=== PATIENT | female | born 1960 | race Caucasian/White ===

== ENCOUNTER 2017-08-14 09:57 | Emergency (ER) | payer OTHER ==
[~2017-08-14] VITALS: Ht 170.2 cm; Wt 97.5 kg
[~2017-08-14 09:57] MED LIST: ABAT250V; AMLO5 PO; AMOCLA875 PO; ASPI81CH PO; BUPR75; CEFD300 PO; CEPH500 PO; CLON.1; CLON.2; CYCL10 PO; FURO20 PO; GREEN COFFEE BEAN; HYDACE5 PO; HYDACE5325 PO; Hydrocodone-Ap1 EA23 PO; IBUP400 PO; IBUP800 PO; LIPOZENE; LISI5; MELO7.5 PO; METR500 PO; MORP15ER PO; MULVITMINE PO; Mobic7.5 MG PO; Norco 5-325 Ta1 EACH PO; OLME20; OMEP40CA12 PO; OXYACE5T PO; POTA10T PO; PROM25 PO; Prinivil10 MG PO; SERT100; SERT100 PO; SULTRIDS PO; SUPRENZA ODT30 MG PO; TRAM50; TRAM50 PO; TRIHYD253A PO
[2017-08-14 11:14] LABS: BASOPHILS ABSOLUTE AUTO 0.01 K/mm3 (0.00-0.23); BASOPHILS PERCENT AUTO 0 % (0-2); EOSINOPHILS ABSOLUTE AUTO 0.13 K/mm3 (0.00-0.68); EOSINOPHILS PERCENT AUTO 2 % (0-6); Hematocrit 33.5 % (33.0-51.0); Hemoglobin 10.9 g/dL (11.5-16.0); IMMATURE GRAN ABSOLUTE AUTO 0.02 K/mm3 (0.00-0.10); IMMATURE GRAN PERCENT AUTO 0 % (0-1); LYMPHOCYTES ABSOLUTE AUTO 2.41 K/mm3 (0.84-5.20); LYMPHOCYTES PERCENT AUTO 35 % (21-46); MONOCYTES PERCENT AUTO 7 % (4-13); Mean Corpuscular HGB 29.5 pg (26.0-34.0); Mean Corpuscular HGB Conc 32.5 g/dL (31.5-36.5); Mean Corpuscular Volume 91 fL (80-100); Mean Platelet Volume 8.9 fL (9.1-12.4); NEUTROPHILS ABSOLUTE AUTO 3.82 K/mm3 (1.96-9.15); NEUTROPHILS PERCENT AUTO 55 % (41-73); Platelet Count 236 K/mm3 (150-400); RDW Coefficient Variation 14.4 % (11.7-14.2); RDW Standard Deviation 47.3 fL (35.1-46.3); White Blood Cell Count 6.89 K/mm3 (4.00-11.30)
[2017-08-14 11:35] LABS: Albumin, Blood 3.4 g/dL (3.4-5.0); Albumin/Globulin Ratio 1.1 (0.8-1.8); Bilirubin, Total 0.2 mg/dL (0.1-1.0); Bun/Creatinine Ratio 16.9 (12.0-20.0); Calcium, Blood 8.5 mg/dL (8.5-10.1); Creatinine, Blood 1.48 mg/dL (0.40-1.00); Total Protein, Blood 6.4 g/dL (6.4-8.2)
[2017-08-14] MEDS ORDERED: MINO100 PO (14:07)
[2017-08-14] MEDS ORDERED: HYDR1TAB94 PO (14:07)
[2018-07-10] MEDS ORDERED: IRON150C PO (18:16)
[2018-07-10] MEDS ORDERED: CYAN500 PO (18:16)
== END 2017-08-14 14:46 | disposition home or self-care (01) ==
LOC: ER 09:57
PROVIDERS: Emergency Medicine
DX: L03.116 Cellulitis of left lower limb (principal); S90.862D Insect bite (nonvenomous), left foot, subsequent encounter; W57.XXXD Bitten or stung by nonvenomous insect and other nonvenomous arthropods, subsequent encounter; Z79.899 Other long term (current) drug therapy; I10 Essential (primary) hypertension; F32.9 Major depressive disorder, single episode, unspecified; Z96.642 Presence of left artificial hip joint; Z98.51 Tubal ligation status; Z90.49 Acquired absence of other specified parts of digestive tract
CPT/HCPCS: 36415; 80053; 85025; 90471; 90714; 99283

== ENCOUNTER → 2019-06-04 | Outpatient (CLI) | payer OTHER ==
[~2019-06-04] MED LIST changes: +CYAN500 PO; +HYDR1TAB94 PO; +IRON150C PO; +MINO100 PO
[2019-06-04 16:50] LABS: Source, Urine Clean Catch
[2019-06-04 18:13] LABS: Bilirubin, Urine Neg (Neg); Blood, Urine 4+ (Neg); Glucose Qualitative, Urine Neg (Neg); Ketones, Urine Neg (Neg); Leukocyte Esterase, Urine 3+ (Neg); Nitrite, Urine Neg (Neg); Protein, Urine 2+ (Neg); Urobilinogen, Urine NORM (Normal)
[2019-06-04 18:38] LABS: Appearance, Urine Hazy (Clear); Color, Urine Yellow (P-Yellow)
[2019-06-04 18:39] LABS: Squamous Epithelial Cells Few /hpf (Few)
[2019-06-04 18:40] LABS: Bacteria Mod /hpf
== END | disposition home or self-care (01) ==
LOC: OLS 16:49 → LAB SHORT 16:49
PROVIDERS: Physician Assistant
DX: R30.0 Dysuria (principal)
CPT/HCPCS: 81001; 87077; 87086; 87186

== ENCOUNTER → 2019-08-21 | Outpatient (CLI) | payer OTHER ==
[2019-08-21 11:25] LABS: Source, Urine Clean Catch
[2019-08-21 12:26] LABS: Appearance, Urine Hazy (Clear); Bilirubin, Urine Neg (Neg); Blood, Urine 4+ (Neg); Color, Urine Yellow (P-Yellow); Glucose Qualitative, Urine Neg (Neg); Ketones, Urine 1+ (Neg); Leukocyte Esterase, Urine 2+ (Neg); Nitrite, Urine Neg (Neg); Protein, Urine 3+ (Neg); Specific Gravity, Urine 1.025 (1.003-1.022); Urobilinogen, Urine NORM (Normal)
[2019-08-21 12:38] LABS: Bacteria Mod /hpf; Squamous Epithelial Cells Mod /hpf (Few)
== END | disposition home or self-care (01) ==
LOC: LAB SHORT 11:22 → OLS 11:22 → LAB FUT 08-20 16:15
PROVIDERS: Physician Assistant
DX: N39.0 Urinary tract infection, site not specified (principal)
CPT/HCPCS: 81001; 87077; 87086; 87186

== ENCOUNTER → 2020-07-20 | Outpatient (CLI) | payer OTHER ==
[~2020-07-20] MED LIST changes: +ACET500 PO; -CLON.2; +CLON.2 PO; +DELTASONE20 MG PO; +DIPYRIDAMOLE PO; +FLUT1DIS2 INH; -LISI5; +LISI5 PO; +METO25ER PO; +OMEP20ER PO; +POTCIT10 PO; +ROSU10TA PO; +ROXICODONE5 MG PO; +Ventolin/Prove6.7 GM INH
== END ==
LOC: LAB 14:45
DX: R35.0 Frequency of micturition (principal)
CPT/HCPCS: 87086

== ENCOUNTER 2020-09-19 12:23 | Day surgery (SDC) | payer OTHER ==
[~2020-09-19] VITALS: Ht 167.6 cm; Wt 104.0 kg
[~2020-09-19 12:23] MED LIST changes: -ACET500 PO; -DELTASONE20 MG PO; -ROXICODONE5 MG PO
== END 2020-09-19 14:28 | disposition home or self-care (01) ==
LOC: ORSCSDS 12:23
PROVIDERS: Internal Medicine Gastroenterology
PROC: 0DBL8ZX Excision of Transverse Colon, Via Natural or Artificial Opening Endoscopic, Diagnostic (ICD-10-PCS; principal; 2020-09-19 13:45)
DX: K62.5 Hemorrhage of anus and rectum (principal); D12.3 Benign neoplasm of transverse colon; K57.30 Diverticulosis of large intestine without perforation or abscess without bleeding; K64.8 Other hemorrhoids; Z86.010 Personal history of colon polyps; I10 Essential (primary) hypertension; F32.9 Major depressive disorder, single episode, unspecified; B19.10 Unspecified viral hepatitis B without hepatic coma; Z79.899 Other long term (current) drug therapy
CPT/HCPCS: 88305; J2250; J2405; J2704; J7120

== ENCOUNTER 2020-09-30 22:43 | Emergency (ER) | payer OTHER ==
[~2020-09-30] VITALS: Ht 167.6 cm; Wt 99.8 kg
[2020-10-01] MEDS ORDERED: DELTASONE20 MG PO (00:04)
== END 2020-10-01 00:33 | disposition home or self-care (01) ==
LOC: ER 22:43
DX: M77.8 Other enthesopathies, not elsewhere classified (principal); I10 Essential (primary) hypertension; Z79.899 Other long term (current) drug therapy
CPT/HCPCS: 29125; 99283-25

== ENCOUNTER 2020-10-23 06:12 | Day surgery (SDC) | payer OTHER ==
[~2020-10-23] VITALS: Ht 167.6 cm; Wt 105.6 kg
[~2020-10-23 06:12] MED LIST changes: +DELTASONE20 MG PO
--- NOTE | 2020-10-23 07:08 | NUR ---
Ambulatory in Day Surgery Surgical site prepped with 2% Chlorhexidine cloth wipe. Darby Paws warming gown applied. History, Chart, Medications and Allergies reviewed before start of procedure.Lungs clear T/O to Auscultation. Patient confirms NPO status and agrees with scheduled surgery. Pre-Op teaching done. Pt verbalizes understanding. Patient States Post-Procedure ride home has been arranged. Patient reports completing Chlorhexadine shower X2 prior to admission to hospital.
--- NOTE | 2020-10-23 08:19 | NUR ---
10/23/20 0819 Hung Barnes PTS GREAT TOES BILATERALLY PALE PURPLEISH IN COLOR WITH ROUGH SKIN PRIOR TO HANA BOOTS BEING APPLIED. PPP BILATERALLY
--- NOTE | 2020-10-23 17:54 | NUR ---
SHIFT SUMMARY PT A&OX4, VSS, S/P R OMAR, AQUACEL CDI, AMBULATES W/FWW/GB/SBA, UP TO CHAIR, TADEO PO, VOIDING WELL, DENIES PAIN AT THIS TIME, PHYSICAL THERAPY EVALUATION COMPLETE, PLAN FOR P.T. AT 0900 AND THEN DC IF ALL CONTINUES TO GO WELL. WILL REPORT TO [facility] NOC RN.
--- NOTE | 2020-10-24 04:44 | NUR ---
MARBLE FINISHER SUMMARY A/O X4, SBA WITH FWW TO BATHROOM. PT IS TOLERATING AMBLULATION WELL. AQUACEL TO R. HIP C/D/I. MEDICATED FOR PAIN X3. REPORTS INTERMITTENT NUMBNESS TO HANDS BILATERALLY THAT HAS SINCE RESOLVED. VSS, NO ACUTE CHANGES AT THIS TIME. BED IN LOWEST POSITION WITH CALL LIGHT IN REACH. WILL CONTINUE TO MONITOR AND REPORT TO ONCOMING RN.
[2020-10-24 05:28] LABS: BASOPHILS ABSOLUTE AUTO 0.02 K/mm3 (0.00-0.23); BASOPHILS PERCENT AUTO 0 % (0-2); EOSINOPHILS ABSOLUTE AUTO 0.04 K/mm3 (0.00-0.68); EOSINOPHILS PERCENT AUTO 1 % (0-6); Hematocrit 30.2 % (33.0-51.0); IMMATURE GRAN ABSOLUTE AUTO 0.02 K/mm3 (0.00-0.10); IMMATURE GRAN PERCENT AUTO 0 % (0-1); LYMPHOCYTES ABSOLUTE AUTO 1.27 K/mm3 (0.84-5.20); LYMPHOCYTES PERCENT AUTO 17 % (21-46); MONOCYTES ABSOLUTE AUTO 0.54 K/mm3 (0.16-1.47); MONOCYTES PERCENT AUTO 7 % (4-13); Mean Corpuscular HGB 29.1 pg (26.0-34.0); Mean Corpuscular HGB Conc 33.1 g/dL (31.5-36.5); Mean Corpuscular Volume 88 fL (80-100); Mean Platelet Volume 9.2 fL (9.1-12.4); NEUTROPHILS ABSOLUTE AUTO 5.54 K/mm3 (1.96-9.15); NEUTROPHILS PERCENT AUTO 75 % (41-73); Platelet Count 176 K/mm3 (150-400); RDW Standard Deviation 44.8 fL (35.1-46.3); Red Blood Cell Count 3.44 M/mm3 (3.80-5.20); White Blood Cell Count 7.43 K/mm3 (4.00-11.30)
[2020-10-24 05:49] LABS: Bun/Creatinine Ratio 19.1 (12.0-20.0); Calcium, Blood 8.4 mg/dL (8.5-10.1); Creatinine, Blood 1.36 mg/dL (0.40-1.00); Magnesium, Blood 2.3 mg/dL (1.6-2.4); Potassium, Blood 4.3 mmol/L (3.5-5.5)
[2020-10-24] MEDS ORDERED: ACET500 PO (08:59)
[2020-10-24] MEDS ORDERED: ASPI81CH PO (09:00)
[2020-10-24] MEDS ORDERED: ROXICODONE5 MG PO (09:01)
--- NOTE | 2020-10-24 10:36 | NUR ---
DISCHARGE SUMMARY PT A&OX4, VSS, VOIDING, TOLERATING, PAIN MANAGED, AMB W/FWW/GB, UP TO CHAIR, FRIEND AT BEDSIDE FOR PHYISCAL THERAPY. LEFT FLOOR VIA WC WITH ALL PERSONAL POSSESSIONS, INCLUDING DC PACKET AND 1 NARC SCRIPT, TO GO HOME WITH FRIEND. DC INSTRUCTIONS PROVIDED, PT REP UNDERSTANDING THOSE INSTRUCTIONS. IV DC'D.
== END 2020-10-24 10:02 | disposition home or self-care (01) ==
LOC: ORSCMMR 06:12 → ORD 07:30 → ORSCMMR 07:30 → SURS 11:15 → ORSCMMR 10-24 10:02
PROVIDERS: Orthopaedic Surgery
PROC: 0SR90JA Replacement of Right Hip Joint with Synthetic Substitute, Uncemented, Open Approach (ICD-10-PCS; principal; 2020-10-23 07:30)
DX: M16.11 Unilateral primary osteoarthritis, right hip (principal); I10 Essential (primary) hypertension; E78.00 Pure hypercholesterolemia, unspecified; E66.01 Morbid (severe) obesity due to excess calories; Z68.37 Body mass index [BMI] 37.0-37.9, adult; Z79.899 Other long term (current) drug therapy
CPT/HCPCS: 36415; 72170; 80048; 83735; 85025; 88300; 94640; 94760; 97110; 97110-CQ; 97116; 97116-CQ; 97161; 97530; 97530-CQ; A9270; C1776; J0171; J0690; J0735; J1100; J1885; J2250; J2405; J2704; J2795; J3010; J7120

== ENCOUNTER → 2021-07-11 | Outpatient (CLI) | payer OTHER ==
[~2021-07-11] MED LIST changes: +ACET500 PO; +ROXICODONE5 MG PO
[2021-07-13 15:07] LABS: HPV 16 Negative (Negative); HPV 18 Negative (Negative); HPV OTHER HR TYPES Negative (Negative)
== END | disposition home or self-care (01) ==
LOC: LAB SHORT 18:01 → LAB 18:01
PROVIDERS: Registered Nurse
DX: Z12.4 Encounter for screening for malignant neoplasm of cervix (principal)
CPT/HCPCS: 87624; G0145

== ENCOUNTER → 2021-09-02 | Outpatient (CLI) | payer OTHER ==
[2021-09-03 13:02] LABS: Microalbumin, Urine Quant. 26.2 mg/L (0.000-20.000); Protein, Urine Quantitative 17.8 mg/dL (0.0-11.9)
== END | disposition home or self-care (01) ==
LOC: LAB FUT 03-15 10:50 → LAB SHORT 10:45
PROVIDERS: Internal Medicine Nephrology
DX: N18.30 Chronic kidney disease, stage 3 unspecified (principal); D63.1 Anemia in chronic kidney disease; R94.5 Abnormal results of liver function studies; R76.9 Abnormal immunological finding in serum, unspecified; R94.6 Abnormal results of thyroid function studies
CPT/HCPCS: 81050; 82043; 82570; 84156

== ENCOUNTER → 2021-12-19 | Outpatient (CLI) | payer OTHER | END | disposition home or self-care (01) | LOC: LAB SHORT 18:53 → LAB 18:53 | DX: S81.801A Unspecified open wound, right lower leg, initial encounter (principal) | CPT/HCPCS: 87070; 87075; 87205 ==

== ENCOUNTER → 2022-01-03 | Outpatient (CLI) | payer OTHER | END | disposition home or self-care (01) | LOC: LAB 09:21 → LAB SHORT 09:21 | DX: S81.802A Unspecified open wound, left lower leg, initial encounter (principal) | CPT/HCPCS: 87070; 87075; 87205 ==

== ENCOUNTER 2022-01-18 01:13 | Day surgery (SDC) | payer OTHER | END 2022-01-18 22:53 | disposition home or self-care (01) | LOC: WOUND 01:13 | DX: S81.802A Unspecified open wound, left lower leg, initial encounter (principal); X58.XXXA Exposure to other specified factors, initial encounter | CPT/HCPCS: A9270; G0463 ==

== ENCOUNTER 2022-01-23 01:21 | Day surgery (SDC) | payer OTHER | END 2022-01-23 22:40 | disposition home or self-care (01) | LOC: WOUND 01:21 | DX: I87.311 Chronic venous hypertension (idiopathic) with ulcer of right lower extremity (principal); S81.811D Laceration without foreign body, right lower leg, subsequent encounter; X58.XXXD Exposure to other specified factors, subsequent encounter; I87.2 Venous insufficiency (chronic) (peripheral); I73.9 Peripheral vascular disease, unspecified | CPT/HCPCS: G0463 ==

== ENCOUNTER 2022-02-08 01:06 | Day surgery (SDC) | payer OTHER | END 2022-02-08 23:03 | disposition home or self-care (01) | LOC: WOUND 01:06 | DX: S81.811D Laceration without foreign body, right lower leg, subsequent encounter (principal); X58.XXXD Exposure to other specified factors, subsequent encounter; I87.311 Chronic venous hypertension (idiopathic) with ulcer of right lower extremity; I87.2 Venous insufficiency (chronic) (peripheral); I73.9 Peripheral vascular disease, unspecified | CPT/HCPCS: G0463 ==

== ENCOUNTER 2022-02-15 03:03 | Day surgery (SDC) | payer OTHER | END 2022-02-15 23:05 | disposition home or self-care (01) | LOC: WOUND 03:03 | DX: S81.811D Laceration without foreign body, right lower leg, subsequent encounter (principal); I87.2 Venous insufficiency (chronic) (peripheral); I87.311 Chronic venous hypertension (idiopathic) with ulcer of right lower extremity | CPT/HCPCS: G0463 ==

== ENCOUNTER 2022-03-08 02:29 | Day surgery (SDC) | payer OTHER | END 2022-03-08 22:48 | disposition home or self-care (01) | LOC: WOUND 02:29 | DX: L03.115 Cellulitis of right lower limb (principal); S81.811D Laceration without foreign body, right lower leg, subsequent encounter; X58.XXXD Exposure to other specified factors, subsequent encounter; I87.2 Venous insufficiency (chronic) (peripheral); I73.9 Peripheral vascular disease, unspecified; I87.311 Chronic venous hypertension (idiopathic) with ulcer of right lower extremity; I12.9 Hypertensive chronic kidney disease with stage 1 through stage 4 chronic kidney disease, or unspecified chronic kidney disease; N18.9 Chronic kidney disease, unspecified; E78.5 Hyperlipidemia, unspecified | CPT/HCPCS: A9270; G0463 ==

== ENCOUNTER 2022-06-04 16:15 | Emergency (ER) | payer OTHER ==
[~2022-06-04] VITALS: Ht 167.6 cm; Wt 109.9 kg
[2022-06-04] MEDS ORDERED: DOCU100 PO (20:25)
[2022-06-04] MEDS ORDERED: TRAM50 PO (20:26)
[2022-06-04 20:37] LABS: BASOPHILS ABSOLUTE AUTO 0.02 K/mm3 (0.00-0.23); BASOPHILS PERCENT AUTO 0 % (0-2); EOSINOPHILS ABSOLUTE AUTO 0.21 K/mm3 (0.00-0.68); EOSINOPHILS PERCENT AUTO 3 % (0-6); Hematocrit 34.3 % (33.0-51.0); Hemoglobin 11.5 g/dL (11.5-16.0); IMMATURE GRAN ABSOLUTE AUTO 0.02 K/mm3 (0.00-0.10); IMMATURE GRAN PERCENT AUTO 0 % (0-1); LYMPHOCYTES ABSOLUTE AUTO 2.04 K/mm3 (0.84-5.20); LYMPHOCYTES PERCENT AUTO 29 % (21-46); MONOCYTES ABSOLUTE AUTO 0.51 K/mm3 (0.16-1.47); MONOCYTES PERCENT AUTO 7 % (4-13); Mean Corpuscular HGB 28.9 pg (26.0-34.0); Mean Corpuscular HGB Conc 33.5 g/dL (31.5-36.5); Mean Corpuscular Volume 86 fL (80-100); NEUTROPHILS ABSOLUTE AUTO 4.34 K/mm3 (1.96-9.15); NEUTROPHILS PERCENT AUTO 61 % (41-73); Platelet Count 244 K/mm3 (150-400); RDW Coefficient Variation 13.9 % (11.7-14.2); RDW Standard Deviation 43.9 fL (35.1-46.3); Red Blood Cell Count 3.98 M/mm3 (3.80-5.20); White Blood Cell Count 7.14 K/mm3 (4.00-11.30)
[2022-06-04 21:08] LABS: C-REACTIVE PROTEIN, EXT RANGE 0.486 mg/dL (0.000-0.300)
[2022-06-04 21:10] LABS: Albumin, Blood 3.5 g/dL (3.4-5.0); Albumin/Globulin Ratio 1.2 (0.8-1.8); Bilirubin, Total 0.3 mg/dL (0.1-1.0); Bun/Creatinine Ratio 17.9 (12.0-20.0); Calcium, Blood 9.1 mg/dL (8.5-10.1); Creatinine, Blood 1.4 mg/dL (0.40-1.00); Globulin, Blood 2.9 g/dL (2.2-4.0); Potassium, Blood 4.2 mmol/L (3.5-5.5); Total Protein, Blood 6.4 g/dL (6.4-8.2)
[2022-06-04] MEDS ORDERED: Cipro500 MG PO (21:45)
== END 2022-06-04 21:51 | disposition home or self-care (01) ==
LOC: ER 16:15
PROVIDERS: Emergency Medicine
DX: L08.9 Local infection of the skin and subcutaneous tissue, unspecified (principal); I10 Essential (primary) hypertension; Z79.899 Other long term (current) drug therapy; Z79.82 Long term (current) use of aspirin
CPT/HCPCS: 36415; 73630; 80053; 85025; 85651; 86140

== ENCOUNTER → 2022-11-11 | Outpatient (CLI) | payer OTHER ==
[~2022-11-11] MED LIST changes: +Cipro500 MG PO; +DOCU100 PO
[2022-11-11 18:50] LABS: BASOPHILS ABSOLUTE AUTO 0.02 K/mm3 (0.00-0.23); BASOPHILS PERCENT AUTO 0 % (0-2); EOSINOPHILS PERCENT AUTO 1 % (0-6); Hematocrit 39.9 % (33.0-51.0); Hemoglobin 13.8 g/dL (11.5-16.0); IMMATURE GRAN ABSOLUTE AUTO 0.02 K/mm3 (0.00-0.10); IMMATURE GRAN PERCENT AUTO 0 % (0-1); LYMPHOCYTES ABSOLUTE AUTO 2.04 K/mm3 (0.84-5.20); LYMPHOCYTES PERCENT AUTO 21 % (21-46); MONOCYTES PERCENT AUTO 5 % (4-13); Mean Corpuscular HGB Conc 34.6 g/dL (31.5-36.5); Mean Corpuscular Volume 84 fL (80-100); Mean Platelet Volume 9.1 fL (9.1-12.4); NEUTROPHILS ABSOLUTE AUTO 7.08 K/mm3 (1.96-9.15); NEUTROPHILS PERCENT AUTO 73 % (41-73); Platelet Count 220 K/mm3 (150-400); RDW Coefficient Variation 13.9 % (11.7-14.2); RDW Standard Deviation 42.3 fL (35.1-46.3); Red Blood Cell Count 4.76 M/mm3 (3.80-5.20); White Blood Cell Count 9.76 K/mm3 (4.00-11.30)
[2022-11-11 18:59] LABS: Albumin, Blood 3.5 g/dL (3.4-5.0); Bilirubin, Total 0.6 mg/dL (0.1-1.0); Bun/Creatinine Ratio 19.5 (12.0-20.0); Calcium, Blood 8.9 mg/dL (8.5-10.1); Creatinine, Blood 1.64 mg/dL (0.40-1.00); Globulin, Blood 3.4 g/dL (2.2-4.0); Potassium, Blood 4.3 mmol/L (3.5-5.5); Total Protein, Blood 6.9 g/dL (6.4-8.2)
== END | disposition home or self-care (01) ==
LOC: LAB SHORT 18:45 → LAB 18:45
PROVIDERS: Physician Assistant Medical
DX: K92.1 Melena (principal)
CPT/HCPCS: 80053; 85025

== ENCOUNTER → 2023-02-21 | Outpatient (CLI) | payer OTHER ==
[2023-02-21 17:52] LABS: BASOPHILS ABSOLUTE AUTO 0.02 K/mm3 (0.00-0.23); BASOPHILS PERCENT AUTO 0 % (0-2); EOSINOPHILS ABSOLUTE AUTO 0.21 K/mm3 (0.00-0.68); EOSINOPHILS PERCENT AUTO 3 % (0-6); Hematocrit 39.4 % (33.0-51.0); Hemoglobin 13.1 g/dL (11.5-16.0); IMMATURE GRAN ABSOLUTE AUTO 0.02 K/mm3 (0.00-0.10); IMMATURE GRAN PERCENT AUTO 0 % (0-1); LYMPHOCYTES ABSOLUTE AUTO 1.79 K/mm3 (0.84-5.20); LYMPHOCYTES PERCENT AUTO 24 % (21-46); MONOCYTES ABSOLUTE AUTO 0.42 K/mm3 (0.16-1.47); MONOCYTES PERCENT AUTO 6 % (4-13); Mean Corpuscular HGB 28.2 pg (26.0-34.0); Mean Corpuscular HGB Conc 33.2 g/dL (31.5-36.5); Mean Corpuscular Volume 85 fL (80-100); Mean Platelet Volume 9.1 fL (9.1-12.4); NEUTROPHILS ABSOLUTE AUTO 5.14 K/mm3 (1.96-9.15); NEUTROPHILS PERCENT AUTO 68 % (41-73); Platelet Count 234 K/mm3 (150-400); RDW Coefficient Variation 14.3 % (11.7-14.2); RDW Standard Deviation 43.8 fL (35.1-46.3); Red Blood Cell Count 4.65 M/mm3 (3.80-5.20)
[2023-02-21 18:02] LABS: Calcium, Blood 9.1 mg/dL (8.5-10.1); Creatinine, Blood 1.5 mg/dL (0.40-1.00); Potassium, Blood 4.4 mmol/L (3.5-5.5)
== END | disposition short-term general hospital (02) ==
LOC: LAB 17:44 → LAB SHORT 17:44
PROVIDERS: Chiropractor
DX: S90.511A Abrasion, right ankle, initial encounter (principal)
CPT/HCPCS: 80048; 85025

== ENCOUNTER 2023-04-18 05:49 | Day surgery (SDC) | payer OTHER ==
[~2023-04-18] VITALS: Ht 165.1 cm; Wt 109.2 kg
[~2023-04-18 05:49] MED LIST changes: +ALBU90OI INH; +BUSPIRONE HCL7.5 M6 PO; +FUROSEMIDE40 MG PO
[2023-04-18 06:30] VITALS: BP 120/75
--- NOTE | 2023-04-18 06:30 | NUR ---
Ambulatory in Day Surgery Patient confirms NPO status and agrees with scheduled surgery. Pre-Op teaching done. Pt verbalizes understanding. History, Chart, Medications and Allergies reviewed before start of procedure.Patient States Post-Procedure ride home has been arranged.
--- NOTE | 2023-04-18 07:48 | NUR ---
04/18/23 0748 Sesar Esqueda MONITOR INTACT WITH CONTINUOUS PULSE OXIMETRY, CONTINUOUS END TITAL CO2, AND INTERMITTENT BLOOD PRESSURE.AND EKG ANETHESIA PER
[2023-04-18 08:02] VITALS: BP 105/62
[2023-04-18 08:20] VITALS: BP 111/58
--- NOTE | 2023-04-18 08:25 | NUR ---
Patient up to Ambulate independently. Gait steady. Discharge instructions reviewed with patient. Patient verbalizes understanding. Copy given to patient to take home. Discharged via wheelchair to private car for ride home JUDY
== END 2023-04-18 08:25 | disposition home or self-care (01) ==
LOC: ORD 05:49 → ORSCMMR 05:49 → ORD 07:00 → ORSCSDS 07:30 → ORD 07:30
PROVIDERS: Internal Medicine Gastroenterology
PROC: 0DB58ZX Excision of Esophagus, Via Natural or Artificial Opening Endoscopic, Diagnostic (ICD-10-PCS; principal; 2023-04-18 07:00)
PROC: 0DB68ZX Excision of Stomach, Via Natural or Artificial Opening Endoscopic, Diagnostic (ICD-10-PCS; principal; 2023-04-18 07:00)
PROC: 0DB98ZX Excision of Duodenum, Via Natural or Artificial Opening Endoscopic, Diagnostic (ICD-10-PCS; principal; 2023-04-18 07:00)
DX: R13.10 Dysphagia, unspecified (principal); K21.9 Gastro-esophageal reflux disease without esophagitis; K62.5 Hemorrhage of anus and rectum; K31.89 Other diseases of stomach and duodenum; Z79.899 Other long term (current) drug therapy
CPT/HCPCS: 88305; 88342; J2001; J2704; J7120

== ENCOUNTER 2023-05-11 21:43 | Emergency (ER) | payer OTHER ==
[~2023-05-11] VITALS: Ht 170.2 cm; Wt 74.8 kg
[2023-05-11 22:34] LABS: BASOPHILS ABSOLUTE AUTO 0.03 K/mm3 (0.00-0.23); BASOPHILS PERCENT AUTO 0 % (0-2); EOSINOPHILS ABSOLUTE AUTO 0.05 K/mm3 (0.00-0.68); EOSINOPHILS PERCENT AUTO 1 % (0-6); Hematocrit 42.1 % (33.0-51.0); Hemoglobin 14.1 g/dL (11.5-16.0); IMMATURE GRAN ABSOLUTE AUTO 0.04 K/mm3 (0.00-0.10); IMMATURE GRAN PERCENT AUTO 0 % (0-1); LYMPHOCYTES ABSOLUTE AUTO 1.51 K/mm3 (0.84-5.20); LYMPHOCYTES PERCENT AUTO 14 % (21-46); MONOCYTES ABSOLUTE AUTO 0.64 K/mm3 (0.16-1.47); MONOCYTES PERCENT AUTO 6 % (4-13); Mean Corpuscular HGB 28.5 pg (26.0-34.0); Mean Corpuscular HGB Conc 33.5 g/dL (31.5-36.5); Mean Corpuscular Volume 85 fL (80-100); Mean Platelet Volume 9.1 fL (9.1-12.4); NEUTROPHILS ABSOLUTE AUTO 8.45 K/mm3 (1.96-9.15); NEUTROPHILS PERCENT AUTO 79 % (41-73); Platelet Count 256 K/mm3 (150-400); RDW Coefficient Variation 14.5 % (11.7-14.2); RDW Standard Deviation 44.8 fL (35.1-46.3); Red Blood Cell Count 4.94 M/mm3 (3.80-5.20); White Blood Cell Count 10.72 K/mm3 (4.00-11.30)
[2023-05-11 23:01] LABS: Albumin, Blood 3.7 g/dL (3.4-5.0); Bilirubin, Total 0.3 mg/dL (0.1-1.0); Bun/Creatinine Ratio 15.6 (12.0-20.0); Calcium, Blood 9.7 mg/dL (8.5-10.1); Creatinine, Blood 2.24 mg/dL (0.40-1.00); Globulin, Blood 3.6 g/dL (2.2-4.0); Potassium, Blood 3.6 mmol/L (3.5-5.5); Total Protein, Blood 7.3 g/dL (6.4-8.2)
[2023-05-11 23:11] LABS: Influenza A, PCR NEGATIVE (NEGATIVE); Influenza B, PCR NEGATIVE (NEGATIVE); Resp Syncytial Virus, PCR NEGATIVE (NEGATIVE); SARS-Cov-2 (COVID-19) PCR, MMC NEGATIVE (NEGATIVE)
[2023-05-11 23:20] LABS: Magnesium, Blood 2.3 mg/dL (1.6-2.4)
[2023-05-12 00:13] VITALS: BP 118/70
== END 2023-05-12 01:44 | disposition home or self-care (01) ==
LOC: ER 21:43
PROVIDERS: Student in an Organized Health Care Education/Training Program
DX: R10.12 Left upper quadrant pain (principal); N17.9 Acute kidney failure, unspecified; M25.512 Pain in left shoulder; I49.1 Atrial premature depolarization; I10 Essential (primary) hypertension; F32.A Depression, unspecified; Z20.822 Contact with and (suspected) exposure to COVID-19; Z91.81 History of falling; Z79.899 Other long term (current) drug therapy; Z79.82 Long term (current) use of aspirin; Z79.51 Long term (current) use of inhaled steroids
CPT/HCPCS: 0241U; 73030; 74177; 80053; 83690; 83735; 83880; 84484; 85025; 93005; 93010; 96361; 96374; 99284-25; A9270; J1885; J7030; Q9967

== ENCOUNTER 2023-12-04 02:45 | Day surgery (SDC) | payer OTHER | END 2023-12-04 22:37 | disposition home or self-care (01) | LOC: WOUND 02:45 | DX: L97.222 Non-pressure chronic ulcer of left calf with fat layer exposed (principal); I12.9 Hypertensive chronic kidney disease with stage 1 through stage 4 chronic kidney disease, or unspecified chronic kidney disease; N18.9 Chronic kidney disease, unspecified; E78.5 Hyperlipidemia, unspecified; I87.2 Venous insufficiency (chronic) (peripheral); I73.9 Peripheral vascular disease, unspecified | CPT/HCPCS: A6213; G0463 ==

== ENCOUNTER 2023-12-10 04:35 | Day surgery (SDC) | payer OTHER | END 2023-12-10 22:55 | disposition home or self-care (01) | LOC: WOUND 04:35 | DX: L97.229 Non-pressure chronic ulcer of left calf with unspecified severity (principal); I87.2 Venous insufficiency (chronic) (peripheral); I73.9 Peripheral vascular disease, unspecified ==

== ENCOUNTER 2023-12-12 05:10 | Day surgery (SDC) | payer OTHER | END 2023-12-12 22:34 | disposition home or self-care (01) | LOC: WOUND 05:10 | DX: L97.222 Non-pressure chronic ulcer of left calf with fat layer exposed (principal); I87.2 Venous insufficiency (chronic) (peripheral); I73.9 Peripheral vascular disease, unspecified; I12.9 Hypertensive chronic kidney disease with stage 1 through stage 4 chronic kidney disease, or unspecified chronic kidney disease; N18.9 Chronic kidney disease, unspecified; E78.5 Hyperlipidemia, unspecified ==

== ENCOUNTER 2024-05-24 02:23 | Day surgery (SDC) | payer OTHER | END 2024-05-24 23:00 | disposition home or self-care (01) | LOC: WOUND 02:23 | DX: S81.802D Unspecified open wound, left lower leg, subsequent encounter (principal); I12.0 Hypertensive chronic kidney disease with stage 5 chronic kidney disease or end stage renal disease; N18.6 End stage renal disease; J44.9 Chronic obstructive pulmonary disease, unspecified; M81.0 Age-related osteoporosis without current pathological fracture; E78.5 Hyperlipidemia, unspecified; M79.7 Fibromyalgia; I25.2 Old myocardial infarction; Z98.51 Tubal ligation status; Z90.710 Acquired absence of both cervix and uterus; Z90.49 Acquired absence of other specified parts of digestive tract | CPT/HCPCS: A6213; G0463 ==

== ENCOUNTER → 2024-05-25 | Outpatient (CLI) | payer OTHER ==
[2024-06-02 10:44] LABS: HPV HIGH RISK BY TMA Not Detected; HPV SOURCE Cervical/Vag
== END ==
LOC: LAB 12:24 → LAB SHORT 12:24
PROVIDERS: Obstetrics & Gynecology
DX: Z01.419 Encounter for gynecological examination (general) (routine) without abnormal findings (principal)
CPT/HCPCS: 87624; G0123

== ENCOUNTER 2024-05-31 02:46 | Day surgery (SDC) | payer OTHER ==
[2024-05-31] MEDS ORDERED: Lidocaine HCl 4% Cream 5 GM ONE (09:52)
== END 2024-05-31 22:40 | disposition home or self-care (01) ==
LOC: WOUND
DX: S81.802A Unspecified open wound, left lower leg, initial encounter (principal); I12.9 Hypertensive chronic kidney disease with stage 1 through stage 4 chronic kidney disease, or unspecified chronic kidney disease; N18.9 Chronic kidney disease, unspecified; E78.5 Hyperlipidemia, unspecified; G62.9 Polyneuropathy, unspecified; X58.XXXA Exposure to other specified factors, initial encounter
CPT/HCPCS: A9270

== ENCOUNTER 2024-06-07 01:57 | Day surgery (SDC) | payer OTHER ==
[2024-06-07] MEDS ORDERED: Lidocaine HCl 4% Cream 5 GM ONE (09:58)
[2024-06-11] MEDS ORDERED: DILT120 PO (16:22)
[2024-06-11] MEDS ORDERED: POTA8 PO (16:22)
[2024-06-11] MEDS ORDERED: FARXIGA5 MG PO (16:22)
== END 2024-06-07 22:48 | disposition home or self-care (01) ==
LOC: WOUND 01:57
DX: S81.802A Unspecified open wound, left lower leg, initial encounter (principal); E78.5 Hyperlipidemia, unspecified; I12.9 Hypertensive chronic kidney disease with stage 1 through stage 4 chronic kidney disease, or unspecified chronic kidney disease; N18.9 Chronic kidney disease, unspecified; G62.9 Polyneuropathy, unspecified; X58.XXXA Exposure to other specified factors, initial encounter
CPT/HCPCS: A6213; A9270

== ENCOUNTER 2024-06-23 09:47 | Day surgery (SDC) | payer OTHER ==
[2024-06-23] VITALS (8 sets, daily range): BP systolic 133–175; BP diastolic 81–100
[~2024-06-23] VITALS: Ht 165.1 cm; Wt 117.0 kg
[~2024-06-23 09:47] MED LIST changes: +DILT120 PO; +FARXIGA5 MG PO; +POTA8 PO
[2024-06-23] MEDS ORDERED: Lactated Ringer's 1,000 ML IV SCH (10:35)
[2024-06-23] MEDS ORDERED: INCRUSE (11:07)
[2024-06-23] MEDS ORDERED: propofoL 40 ML IV ONE (12:13)
[2024-06-23] MEDS ORDERED: FentaNYL Citrate 50 MCG/ML 2 ML Injection ONE (12:13)
[2024-06-23] MEDS ORDERED: Metoclopramide HCl 5MG / ML 2ML Vial ONE (12:31)
[2024-06-23] MEDS ORDERED: Dexamethasone Sod Phos 10 MG/ML 1ML VIAL ONE (12:31)
[2024-06-23] MEDS ORDERED: Phenylephrine HCl 100 MCG/ML-NS 10MLSYR (1MG/10ML) ONE (12:40)
[2024-06-23] MEDS ORDERED: OxyCODONE 5 mg/Acetamin 325 mg TABLET PO PRN (13:10)
--- NOTE | 2024-06-23 13:57 | NUR ---
Discharge instructions reviewed with patient. Patient verbalizes understanding. Copy given to patient to take home. Scant vaginal bleeding on chucks. Up to bathroom x2. Patient States Post-Procedure ride home has been arranged. Discharged via wheelchair to private car for ride home.
== END 2024-06-23 14:07 | disposition home or self-care (01) ==
LOC: ORSCMMR 09:47 → ORD 11:30 → ORSCMMR 14:07
PROVIDERS: Obstetrics & Gynecology
PROC: 0UB98ZZ Excision of Uterus, Via Natural or Artificial Opening Endoscopic (ICD-10-PCS; principal; 2024-06-23 11:30)
PROC: 0UDB8ZX Extraction of Endometrium, Via Natural or Artificial Opening Endoscopic, Diagnostic (ICD-10-PCS; principal; 2024-06-23 11:30)
DX: N95.0 Postmenopausal bleeding (principal); N84.0 Polyp of corpus uteri; F41.8 Other specified anxiety disorders; J44.9 Chronic obstructive pulmonary disease, unspecified; I12.9 Hypertensive chronic kidney disease with stage 1 through stage 4 chronic kidney disease, or unspecified chronic kidney disease; N18.9 Chronic kidney disease, unspecified; E66.9 Obesity, unspecified; Z68.41 Body mass index [BMI] 40.0-44.9, adult; Z79.82 Long term (current) use of aspirin; Z79.899 Other long term (current) drug therapy
CPT/HCPCS: 88305; A9270; J1100; J2371; J2704; J2765; J3010; J7120

== ENCOUNTER 2024-06-28 02:31 | Day surgery (SDC) | payer OTHER ==
[~2024-06-28 02:31] MED LIST changes: +INCRUSE
[2024-06-28] MEDS ORDERED: Lidocaine HCl 4% Cream 5 GM ONE (08:38)
== END 2024-06-28 22:45 | disposition home or self-care (01) ==
LOC: WOUND 02:31
DX: L89.893 Pressure ulcer of other site, stage 3 (principal); S81.802A Unspecified open wound, left lower leg, initial encounter; I12.9 Hypertensive chronic kidney disease with stage 1 through stage 4 chronic kidney disease, or unspecified chronic kidney disease; N18.9 Chronic kidney disease, unspecified; E78.5 Hyperlipidemia, unspecified; M79.7 Fibromyalgia
CPT/HCPCS: A6213; A9270

== ENCOUNTER 2024-07-05 00:19 | Day surgery (SDC) | payer OTHER ==
[2024-07-05] MEDS ORDERED: Lidocaine HCl 4% Cream 5 GM ONE (08:36)
== END 2024-07-05 23:00 | disposition home or self-care (01) ==
LOC: WOUND 00:19
DX: S81.802A Unspecified open wound, left lower leg, initial encounter (principal); W22.8XXA Striking against or struck by other objects, initial encounter; X58.XXXA Exposure to other specified factors, initial encounter; I12.9 Hypertensive chronic kidney disease with stage 1 through stage 4 chronic kidney disease, or unspecified chronic kidney disease; N18.9 Chronic kidney disease, unspecified; E78.5 Hyperlipidemia, unspecified
CPT/HCPCS: A6213; A9270

== ENCOUNTER 2024-07-12 04:50 | Day surgery (SDC) | payer OTHER ==
[2024-07-12] MEDS ORDERED: Lidocaine HCl 4% Cream 5 GM ONE (09:00)
== END 2024-07-12 23:48 | disposition home or self-care (01) ==
LOC: WOUND 04:50
DX: L89.893 Pressure ulcer of other site, stage 3 (principal); I12.9 Hypertensive chronic kidney disease with stage 1 through stage 4 chronic kidney disease, or unspecified chronic kidney disease; N18.9 Chronic kidney disease, unspecified; E78.5 Hyperlipidemia, unspecified; L97.522 Non-pressure chronic ulcer of other part of left foot with fat layer exposed; L97.512 Non-pressure chronic ulcer of other part of right foot with fat layer exposed; S81.802D Unspecified open wound, left lower leg, subsequent encounter; X58.XXXD Exposure to other specified factors, subsequent encounter
CPT/HCPCS: A6213; A9270; G0463

== ENCOUNTER 2024-07-19 03:01 | Day surgery (SDC) | payer OTHER | END 2024-07-19 23:00 | disposition home or self-care (01) | LOC: WOUND 03:01 | DX: L89.893 Pressure ulcer of other site, stage 3 (principal); S81.802D Unspecified open wound, left lower leg, subsequent encounter; L97.522 Non-pressure chronic ulcer of other part of left foot with fat layer exposed; L97.512 Non-pressure chronic ulcer of other part of right foot with fat layer exposed; X58.XXXD Exposure to other specified factors, subsequent encounter | CPT/HCPCS: G0463 ==

== ENCOUNTER 2024-07-21 17:26 | Inpatient (IN) | payer OTHER ==
[~2024-07-21] VITALS: Ht 165.1 cm; Wt 122.0 kg
[2024-07-21 18:09] LABS: BASOPHILS ABSOLUTE AUTO 0.02 K/mm3 (0.00-0.23); BASOPHILS PERCENT AUTO 0 % (0-2); EOSINOPHILS ABSOLUTE AUTO 0.21 K/mm3 (0.00-0.68); EOSINOPHILS PERCENT AUTO 3 % (0-6); Hematocrit 34.7 % (33.0-51.0); Hemoglobin 11.2 g/dL (11.5-16.0); IMMATURE GRAN ABSOLUTE AUTO 0.03 K/mm3 (0.00-0.10); IMMATURE GRAN PERCENT AUTO 0 % (0-1); LYMPHOCYTES ABSOLUTE AUTO 1.76 K/mm3 (0.84-5.20); LYMPHOCYTES PERCENT AUTO 22 % (21-46); MONOCYTES ABSOLUTE AUTO 0.46 K/mm3 (0.16-1.47); MONOCYTES PERCENT AUTO 6 % (4-13); Mean Corpuscular HGB 29.1 pg (26.0-34.0); Mean Corpuscular HGB Conc 32.3 g/dL (31.5-36.5); Mean Corpuscular Volume 90 fL (80-100); Mean Platelet Volume 8.8 fL (9.1-12.4); NEUTROPHILS ABSOLUTE AUTO 5.38 K/mm3 (1.96-9.15); NEUTROPHILS PERCENT AUTO 68 % (41-73); Platelet Count 270 K/mm3 (150-400); RDW Coefficient Variation 14.8 % (11.7-14.2); RDW Standard Deviation 48.8 fL (35.1-46.3); Red Blood Cell Count 3.85 M/mm3 (3.80-5.20); White Blood Cell Count 7.86 K/mm3 (4.00-11.30)
[2024-07-21 18:31] LABS: Albumin, Blood 3.1 g/dL (3.4-5.0); Albumin/Globulin Ratio 0.8 (0.8-1.8); Bilirubin, Total 0.4 mg/dL (0.1-1.0); Bun/Creatinine Ratio 16.4 (12.0-20.0); Calcium, Blood 9.2 mg/dL (8.5-10.1); Creatinine, Blood 1.77 mg/dL (0.40-1.00); Globulin, Blood 3.7 g/dL (2.2-4.0); Potassium, Blood 4.8 mmol/L (3.5-5.5); Total Protein, Blood 6.8 g/dL (6.4-8.2)
[2024-07-21] MEDS ORDERED: Ipratropium/Albuterol SulF 2.5-0.5MG/3 ML Amp INH ONE (19:40)
[2024-07-21 20:52] LABS: Influenza A, PCR NEGATIVE (NEGATIVE); Influenza B, PCR NEGATIVE (NEGATIVE); Resp Syncytial Virus, PCR NEGATIVE (NEGATIVE); SARS-Cov-2 (COVID-19) PCR, MMC NEGATIVE (NEGATIVE)
[2024-07-21] MEDS ORDERED: Furosemide 10 MG/ML 4ML Vial IV ONE (21:15)
[2024-07-21 22:27] LABS: Source, Urine Clean Catch
[2024-07-21] MEDS ORDERED: AMOX-CLAV 875-1 EAC5 PO (22:34)
[2024-07-21] MEDS ORDERED: Ampicillin Sod/Sulbactam Sod 3 GM in NS 100 ML IV ONE (22:35)
[2024-07-21] MEDS ORDERED: Albumin (Human) 25gm/100ml 100 ML IV ONE (22:40)
[2024-07-21 23:42] LABS: Bilirubin, Urine Neg (Neg); Blood, Urine Neg (Neg); Glucose Qualitative, Urine Neg (Neg); Ketones, Urine Neg (Neg); Leukocyte Esterase, Urine Neg (Neg); Nitrite, Urine Neg (Neg); Protein, Urine Neg (Neg); Specific Gravity, Urine 1.015 (1.003-1.022); Urobilinogen, Urine NORM (Normal)
[2024-07-21] MEDS ORDERED: FLU VACC TS2024-25(6MOS UP)/PF 45 MCG/0.5 ML SYRINGE IM ONE (23:45)
[2024-07-21 23:48] LABS: Appearance, Urine Clear (Clear); Color, Urine Yellow (P-Yellow)
[2024-07-22] MEDS ORDERED: FLU VACC TS2024-25(6MOS UP)/PF 45 MCG/0.5 ML SYRINGE IM SCH (02:00)
--- NOTE | 2024-07-22 02:17 | NUR ---
ASSUMPTION OF CARE/TRANSFER TO PCU PT TO PCU AT APPROXIMATELY 0115. PT TRANSFERED TO PCU BED FROM ER [facility] VIA SLIDER SHEET. PT SLEEPING BUT AROUSABLE. PT QUICKLY FALLS ASLEEP MID CONVERSATION, SOMETIMES ANSWERS QUESTIONS APPROPRIATLY, HOWEVER SOMETIMES MAKES RANDOM NONSENSICLE STATEMENTS WHEN ASKED QUESTIONS. PT FOLLOWS COMMANDS WHEN PROMPTED, MOVES EXTREMITIES EQUALLY BILATERALLY. PT UNABLE TO ASNWER QUESTIONS REGARDING MEDICATIONS WELL PAST MEDICAL DIAGNOSES/SURGERIES. HR 70'S SINUS, MAP >65, PT DENIES CP/PRESSURE. PT ON 4LPM VIA NC ON ARRIVAL TO UNIT, OXYGEN SATURATION >90%. ABDOMEN SOFT, BOWEL TONES ACTIVE THROUGHOUT. PUREWICK IN PLACE TO SUCTION. PIV IN PLACE TO LFA. PT HAS MULTIPLE FLUID FILLED BLISTERS PRESENT TO LEFT LOWER LEG/FOOT, LEFT LOWER LEG RED, OPEN DRY WOUND NOTED TO LEFT ZAVALA. REDEND SPOT TO RIGHT HEEL, PICTURES IN CHART. PER ER REPORT, PT HAS BEEN SEEN AND TREATED AT THE WOUND CLINIC FOR THE PAST NINE WEEKS FOR HER LEFT LEG. PT STATES HER LEG IS ONLY PAINFUL WHEN TOUCHED. BED IN LOWEST POSITION, CALL LIGHT WITHIN REACH, CARE CONTINUES.
[2024-07-22 02:27] VITALS: BP 107/90
[2024-07-22 04:01] VITALS: BP 120/70
--- NOTE | 2024-07-22 06:18 | NUR ---
SHIFT SUMMARY NO ACUTE CHANGES THIS SHIFT. PT CONTINUES TO REST IN BED, SLEEPING, DIFFICULT TO AROUSE AT TIMES. PT QUICKLY FALLS BACK ASLEEP DURING CONVERSATION, INCONSISTENTLY ANSWERS QUESTIONS. PT MOVES EXTREMITIES EQUALLY BILATERALLY, REPOSIITONS SELF IN BED FOR COMFORT. PT UP TO BEDSIDE COMMODE TO VOID WITH 1 PERSON ASSIST AND BACK TO BED. HR 70'S SINUS, MAP >65. PT ON 2LPM VIA NC, OXYGEN SATURATION >90%. ABDOMEN ROUND AND SOFT, BOWEL TONES ACTIVE THROUGHOUT. PUREWICK IN PLACE, HOWEVER PT DID AMBUALTE TO BEDSIDE COMMODE ONCE THIS SHIFT TO VOID. PIV IN PLACE TO LFA SL. LEFT LOWER LEG REMAINS THE SAME WITH REDNESS AND FLUID FILLED BLISTERS, PICTURES IN CHART. BED IN LOWEST POSITION, CALL LIGHT WITHIN REACH, CARE CONTINUES.
[2024-07-22] MEDS ORDERED: Furosemide 10 MG/ML 4ML Vial IV SCH ×2 (07:27→09:00)
[2024-07-22] MEDS ORDERED: Insulin Human Lispro 100 Units/ML 3ML Syringe SC SCH (07:30)
[2024-07-22 07:34] VITALS: BP 132/83
[2024-07-22] MEDS ORDERED: CeFAZolin Sodium 1,000 MG in NS 50 ML IV SCH (08:00)
[2024-07-22] MEDS ORDERED: Enoxaparin 40 MG/0.4 ML SYR SC SCH (09:00)
[2024-07-22 09:02] LABS: CHOL/HDL RATIO 2.2; Cholesterol 89 mg/dL (50-200); HDL Cholesterol 40 mg/dL (>39); LDL/HDL RATIO 0.6; Low Density Lipoprotein Chol 23 mg/dL (0-110); Triglycerides 130 mg/dL (30-160); Very Low Density Lipoprot Chol 26 mg/dL (6-32)
[2024-07-22] MEDS ORDERED: Albuterol HFA200 ACT/6.7 GM INH INH PRN (09:30)
[2024-07-22] MEDS ORDERED: Ipratropium/Albuterol SulF 2.5-0.5MG/3 ML Amp INH SCH (09:45)
[2024-07-22] MEDS ORDERED: Silver Sulfadiazine 1% Cream 25 APPLIC/25 GM Tube TOP ONE (12:00)
[2024-07-22 12:46] LABS: pH Blood Venous 7.34 (7.34-7.37)
[2024-07-22 12:47] LABS: Base Excess Venous 5.9 mmol/L; Bicarbonate Venous 28.5 mmol/L (24.0-30.0); PCO2 Venous 59.3 mmHg (38-42)
[2024-07-22 13:03] VITALS: BP 111/60
[2024-07-22] MEDS ORDERED: Gabapentin 300 MG Cap PO SCH (14:00)
[2024-07-22 15:01] LABS: PCO2 Arterial 60.4 mmHg (35-45); PO2 Arterial 93.8 mmHg (80-100); pH Blood Arterial 7.36 (7.35-7.45)
[2024-07-22 18:00] VITALS: BP 114/68
--- NOTE | 2024-07-22 19:24 | NUR ---
report received verified, pt sleeping heavly is arousable but is mumbling. vss no s/s of distress, o2 95% @ 4 liters. pt o2 drops if o2 is removed. assessment done, assisted pt to bsc without any issues, 900ml clr yellow urine.
--- NOTE | 2024-07-22 19:28 | NUR ---
1000 left leg doppler done, no sign of occlusion.
--- NOTE | 2024-07-22 19:29 | NUR ---
1300 pt more awake, has been able to feed self meals and is able to make needs known. i explained to pt and friend of current plan, i also attemped to given explanation for admission the best i could. call light is at bedside. pt aware that cpap will be used this evening to see if it could help with her breathing and mentation. pt is onboard.
[2024-07-22 20:25] VITALS: BP 107/55
[2024-07-23 00:38] VITALS: BP 127/68
[2024-07-23] MEDS ORDERED: Acetaminophen 325 MG TABLET PO PRN (00:55)
[2024-07-23 04:24] VITALS: BP 126/71
--- NOTE | 2024-07-23 06:25 | NUR ---
SHIFT SUMMARY PT TOLERATED CPAP WELL OVERNIGHT. INTERMITTENT DESATURATION TO 70'S WHILE SLEEPING WITH QUICK RECUPERATION. APNEA DISCUSSED WITH RT. NO SETTING CHANGES AT THIS TIME. NO S/S ACUTE DISTRESS.
[2024-07-23 07:36] LABS: BASOPHILS ABSOLUTE AUTO 0.02 K/mm3 (0.00-0.23); BASOPHILS PERCENT AUTO 0 % (0-2); EOSINOPHILS PERCENT AUTO 3 % (0-6); Hematocrit 32.5 % (33.0-51.0); Hemoglobin 10.6 g/dL (11.5-16.0); IMMATURE GRAN ABSOLUTE AUTO 0.02 K/mm3 (0.00-0.10); IMMATURE GRAN PERCENT AUTO 0 % (0-1); LYMPHOCYTES PERCENT AUTO 20 % (21-46); MONOCYTES ABSOLUTE AUTO 0.41 K/mm3 (0.16-1.47); MONOCYTES PERCENT AUTO 6 % (4-13); Mean Corpuscular HGB Conc 32.6 g/dL (31.5-36.5); Mean Corpuscular Volume 89 fL (80-100); Mean Platelet Volume 8.7 fL (9.1-12.4); NEUTROPHILS ABSOLUTE AUTO 4.52 K/mm3 (1.96-9.15); NEUTROPHILS PERCENT AUTO 70 % (41-73); Platelet Count 213 K/mm3 (150-400); RDW Coefficient Variation 14.5 % (11.7-14.2); RDW Standard Deviation 46.8 fL (35.1-46.3); Red Blood Cell Count 3.65 M/mm3 (3.80-5.20); White Blood Cell Count 6.47 K/mm3 (4.00-11.30)
[2024-07-23] MEDS ORDERED: NS 250 ML IV PRN (07:50)
[2024-07-23 08:02] LABS: Albumin/Globulin Ratio 0.9 (0.8-1.8); Bilirubin, Total 0.3 mg/dL (0.1-1.0); Bun/Creatinine Ratio 20.7 (12.0-20.0); Creatinine, Blood 1.4 mg/dL (0.40-1.00); Globulin, Blood 3.4 g/dL (2.2-4.0); Potassium, Blood 4.5 mmol/L (3.5-5.5); Total Protein, Blood 6.4 g/dL (6.4-8.2)
[2024-07-23 08:04] VITALS: BP 125/72
[2024-07-23] MEDS ORDERED: Mometasone/Formoterol MDI 100/5 mcg 13 GM INH SCH (08:15)
[2024-07-23] MEDS ORDERED: Ipratropium/Albuterol SulF 2.5-0.5MG/3 ML Amp INH PRN (08:20)
[2024-07-23] MEDS ORDERED: Neurontin300 MG PO (10:55)
[2024-07-23] MEDS ORDERED: Gabapentin600 MG PO (10:55)
[2024-07-23] MEDS ORDERED: TOPI25 PO (11:03)
[2024-07-23 15:29] VITALS: BP 142/77
--- NOTE | 2024-07-23 18:22 | NUR ---
SHIFT SUMMARY: PT IS A&OX4, PLEASANT AND COOPERATIVE WITH CARES. PT SLEPT MUCH OF THIS SHIFT. VSS ON 1-2L NC WHILE ASLEEP. C/O PAIN IN HER LLE 03/13, MEDICATED WITH PRN 650MG PO TYLENOL. LLE WITH WOUND ON ZAVALA. L FOOT HAS LARGE FLUID FILLED BLISTERS. BUE ARE TREMULOUS AND JERKY. PT STATES THIS IS WHY SHE CAME INTO THE HOSPITAL D/T NOT BEING ABLE TO HOLD ONTO ANYTHING. TOLERATING A HEART HEALTHY DIET, GOOD PO INTAKE. X1 ASSIST WITH FWW TO BR. WICKING SYSTEM IN PLACE DRAINING LARGE AMOUNTS OF CLEAR, LIGHT YELLOW URINE. IT IS VERY PAINFUL FOR THE PT TO AMBULATE TO THE BR FREQUENTLY D/T DIURETICS. HAD THREE FORMED BM'S THIS SHIFT. BED IN LOWEST POSITION, CALL LIGHT WITHIN REACH.
[2024-07-23 20:05] VITALS: BP 135/67
[2024-07-23] MEDS ORDERED: Melatonin 5 MG Tablet PO PRN (23:00)
--- NOTE | 2024-07-24 04:27 | NUR ---
SHIFT SUMMARY PATIENT ANXIOUS AT TIMES REPORTING SHE CAN'T SLEEP AFTER SAYING SHE SLEPT DURING DAY SHIFT. AXOX 4 AND ONE ASSIST TO BSC. SOB W/EXERTION. PLACED ON 2L O2 NC WHEN DESTATING INTO THE 80'S SLEEPING. REFUSED TO WEAR CPAP REPORTING TOO CLAUSTROPHOBIC THE NIGHT BEFORE. CBG 112. PIV INTACT. IV ABX INFUSED. MELATONIN 5 MG GIVEN FOR INSOMNIA. DENIES CHEST PAIN AND N/V. LEFT FOOT FLUID FILLED BLISTERS. SLEPT ON/OFF WITH NO MORE ANXIETY. CALL LIGHT IN REACH. BED IN LOWEST POSITION AND ALARM ON FOR IMPULSIVENESS. WILL CONTINUE TO MONITOR UNTIL DAY SHIFT NURSE ASSUMES CARE.
[2024-07-24 05:41] VITALS: BP 158/98
[2024-07-24 06:51] LABS: BASOPHILS ABSOLUTE AUTO 0.01 K/mm3 (0.00-0.23); BASOPHILS PERCENT AUTO 0 % (0-2); EOSINOPHILS ABSOLUTE AUTO 0.19 K/mm3 (0.00-0.68); EOSINOPHILS PERCENT AUTO 4 % (0-6); Hemoglobin 11.2 g/dL (11.5-16.0); IMMATURE GRAN ABSOLUTE AUTO 0.02 K/mm3 (0.00-0.10); IMMATURE GRAN PERCENT AUTO 0 % (0-1); LYMPHOCYTES ABSOLUTE AUTO 0.92 K/mm3 (0.84-5.20); LYMPHOCYTES PERCENT AUTO 18 % (21-46); MONOCYTES PERCENT AUTO 6 % (4-13); Mean Corpuscular HGB 28.9 pg (26.0-34.0); Mean Corpuscular HGB Conc 32.9 g/dL (31.5-36.5); Mean Corpuscular Volume 88 fL (80-100); Mean Platelet Volume 8.7 fL (9.1-12.4); NEUTROPHILS PERCENT AUTO 72 % (41-73); Platelet Count 226 K/mm3 (150-400); RDW Coefficient Variation 14.1 % (11.7-14.2); RDW Standard Deviation 45.1 fL (35.1-46.3); Red Blood Cell Count 3.87 M/mm3 (3.80-5.20); White Blood Cell Count 5.14 K/mm3 (4.00-11.30)
[2024-07-24 07:20] LABS: Albumin/Globulin Ratio 0.9 (0.8-1.8); Bilirubin, Total 0.4 mg/dL (0.1-1.0); Bun/Creatinine Ratio 19.7 (12.0-20.0); Calcium, Blood 8.9 mg/dL (8.5-10.1); Creatinine, Blood 1.17 mg/dL (0.40-1.00); Globulin, Blood 3.4 g/dL (2.2-4.0); Potassium, Blood 4.2 mmol/L (3.5-5.5); Total Protein, Blood 6.4 g/dL (6.4-8.2)
[2024-07-24 07:53] VITALS: BP 167/95
--- NOTE | 2024-07-24 10:00 | NUR ---
PATIENT REFUSED TO WEAR CONTINOUS PULSE OXIMETRY DR MARTINEZ NOTIFIED.
[2024-07-24] MEDS ORDERED: Acetaminophen325 M1 PO (16:36)
[2024-07-24] MEDS ORDERED: CEPH500 PO (16:37)
[2024-07-24] MEDS ORDERED: SILVADENE20 G1 TOP (16:38)
--- NOTE | 2024-07-24 17:12 | NUR ---
DISHCARGE INSTRUCTIONS GIVEN TO PATIENT WHO VERBALIZED UNDERSTANDING. PATIENT GIVEN WOUND CARE INSTRUCTION AND ADVISED [facility] REFERRAL WAS PLACED. PATIENT ADVISED SHE WILL RECIEVE A CALL FROM HOME HEALTH TO BOOK APPT. PATIENT VERBALIZED UNDERSTANDING. PATIENT MEDICATION BAG TAKEN OUT OF LOCKED CABINET AND GIVEN BACK TO PATIENT.
[2024-07-24] MEDS ORDERED: Silver Sulfadiazine 1% Cream 25 APPLIC/25 GM Tube TOP SCH (21:00)
== END 2024-07-24 17:34 | disposition home health service (06) | DRG 189 ==
LOC: ER 17:26 → PCU 23:58 → MEDS 23:58 → PCU 07-22 01:09 → MEDS 07-23 20:02 → ENPENDDIS 07-24 16:31 → MEDS 07-24 17:34
PROVIDERS: Family Medicine; Physician Assistant; Student in an Organized Health Care Education/Training Program; ADMIT Internal Medicine
PROC: 4A033R1 Measurement of Arterial Saturation, Peripheral, Percutaneous Approach (ICD-10-PCS; principal; 2024-07-22)
DX: J96.01 Acute respiratory failure with hypoxia (principal); L89.893 Pressure ulcer of other site, stage 3; I13.0 Hypertensive heart and chronic kidney disease with heart failure and stage 1 through stage 4 chronic kidney disease, or unspecified chronic kidney disease; Z68.41 Body mass index [BMI] 40.0-44.9, adult; L03.116 Cellulitis of left lower limb; I50.9 Heart failure, unspecified; J44.9 Chronic obstructive pulmonary disease, unspecified; I95.9 Hypotension, unspecified; E11.22 Type 2 diabetes mellitus with diabetic chronic kidney disease; D63.1 Anemia in chronic kidney disease; E66.9 Obesity, unspecified; F32.A Depression, unspecified; G93.89 Other specified disorders of brain; R53.1 Weakness; E11.59 Type 2 diabetes mellitus with other circulatory complications; L97.522 Non-pressure chronic ulcer of other part of left foot with fat layer exposed; L97.512 Non-pressure chronic ulcer of other part of right foot with fat layer exposed; N18.9 Chronic kidney disease, unspecified; Z98.51 Tubal ligation status; Z96.642 Presence of left artificial hip joint; Z98.890 Other specified postprocedural states; Z90.49 Acquired absence of other specified parts of digestive tract; Z79.899 Other long term (current) drug therapy; Z79.82 Long term (current) use of aspirin; Z99.81 Dependence on supplemental oxygen; S81.802D Unspecified open wound, left lower leg, subsequent encounter; X58.XXXD Exposure to other specified factors, subsequent encounter
CPT/HCPCS: 0241U; 36415; 36600; 70450; 71046; 71260; 80053; 80061; 81003; 82803; 82947; 83036; 83605; 83735; 83880; 84443; 84484; 85025; 93308; 93321; 93971; 94640; 94660; 94664; 94762; 97162; 97165; 97530; 97535; 99285-25; A9270; J0295; J0690; J1650; J1940; J7050; P9047; Q9967

== ENCOUNTER 2024-07-26 13:23 | Day surgery (SDC) | payer OTHER ==
[~2024-07-26 13:23] MED LIST changes: +AMOX-CLAV 875-1 EAC5 PO; +Acetaminophen325 M1 PO; +Gabapentin600 MG PO; +Neurontin300 MG PO; +SILVADENE20 G1 TOP; +TOPI25 PO
== END 2024-07-26 22:55 | disposition home or self-care (01) ==
LOC: WOUND 13:23
DX: S81.802D Unspecified open wound, left lower leg, subsequent encounter (principal); G62.9 Polyneuropathy, unspecified; I12.9 Hypertensive chronic kidney disease with stage 1 through stage 4 chronic kidney disease, or unspecified chronic kidney disease; N18.9 Chronic kidney disease, unspecified; E78.5 Hyperlipidemia, unspecified; L97.522 Non-pressure chronic ulcer of other part of left foot with fat layer exposed; L97.512 Non-pressure chronic ulcer of other part of right foot with fat layer exposed; X58.XXXD Exposure to other specified factors, subsequent encounter
CPT/HCPCS: G0463

== ENCOUNTER 2024-08-02 03:03 | Day surgery (SDC) | payer OTHER | END 2024-08-02 23:00 | disposition home or self-care (01) | LOC: WOUND 03:03 | DX: S81.802A Unspecified open wound, left lower leg, initial encounter (principal); S91.301A Unspecified open wound, right foot, initial encounter; W01.198A Fall on same level from slipping, tripping and stumbling with subsequent striking against other object, initial encounter; L89.893 Pressure ulcer of other site, stage 3; L97.522 Non-pressure chronic ulcer of other part of left foot with fat layer exposed; L97.512 Non-pressure chronic ulcer of other part of right foot with fat layer exposed; I12.9 Hypertensive chronic kidney disease with stage 1 through stage 4 chronic kidney disease, or unspecified chronic kidney disease; N18.9 Chronic kidney disease, unspecified; E78.5 Hyperlipidemia, unspecified | CPT/HCPCS: G0463 ==

== ENCOUNTER 2024-08-09 03:15 | Day surgery (SDC) | payer OTHER ==
[2024-08-09] MEDS ORDERED: Lidocaine HCl 4% Cream 5 GM ONE (10:05)
== END 2024-08-09 23:00 | disposition home or self-care (01) ==
LOC: WOUND 03:15
DX: S81.802A Unspecified open wound, left lower leg, initial encounter (principal); S91.301D Unspecified open wound, right foot, subsequent encounter; X58.XXXD Exposure to other specified factors, subsequent encounter; I12.9 Hypertensive chronic kidney disease with stage 1 through stage 4 chronic kidney disease, or unspecified chronic kidney disease; N18.9 Chronic kidney disease, unspecified; E78.5 Hyperlipidemia, unspecified; M79.7 Fibromyalgia
CPT/HCPCS: A9270

== ENCOUNTER 2024-08-16 04:33 | Day surgery (SDC) | payer OTHER ==
[2024-08-16] MEDS ORDERED: Lidocaine HCl 4% Cream 5 GM ONE (09:39)
[2024-08-16] MEDS ORDERED: Triamcinolone Acet 0.1% Cream 15 gm ONE (09:59)
== END 2024-08-16 23:00 | disposition home or self-care (01) ==
LOC: WOUND 04:33
DX: L97.822 Non-pressure chronic ulcer of other part of left lower leg with fat layer exposed (principal); L89.893 Pressure ulcer of other site, stage 3; L97.522 Non-pressure chronic ulcer of other part of left foot with fat layer exposed; I87.2 Venous insufficiency (chronic) (peripheral); G62.9 Polyneuropathy, unspecified; I12.9 Hypertensive chronic kidney disease with stage 1 through stage 4 chronic kidney disease, or unspecified chronic kidney disease; E78.5 Hyperlipidemia, unspecified; M79.7 Fibromyalgia; I50.31 Acute diastolic (congestive) heart failure; D63.1 Anemia in chronic kidney disease; N18.30 Chronic kidney disease, stage 3 unspecified; N25.81 Secondary hyperparathyroidism of renal origin; E55.9 Vitamin D deficiency, unspecified; E78.00 Pure hypercholesterolemia, unspecified; R76.9 Abnormal immunological finding in serum, unspecified; R94.5 Abnormal results of liver function studies; R94.6 Abnormal results of thyroid function studies
CPT/HCPCS: 36415; 80069; 83880; 85018; 85025; A9270; G0463

== ENCOUNTER 2024-08-23 04:05 | Day surgery (SDC) | payer OTHER ==
[2024-08-23] MEDS ORDERED: Lidocaine HCl 4% Cream 5 GM ONE (10:18)
[2024-08-23] MEDS ORDERED: Triamcinolone Acet 0.1% Cream 15 gm ONE (10:25)
== END 2024-08-23 23:00 | disposition home or self-care (01) ==
LOC: WOUND 04:05
DX: L97.822 Non-pressure chronic ulcer of other part of left lower leg with fat layer exposed (principal); L89.622 Pressure ulcer of left heel, stage 2; L97.512 Non-pressure chronic ulcer of other part of right foot with fat layer exposed; I87.2 Venous insufficiency (chronic) (peripheral); I12.9 Hypertensive chronic kidney disease with stage 1 through stage 4 chronic kidney disease, or unspecified chronic kidney disease; N18.9 Chronic kidney disease, unspecified; E78.5 Hyperlipidemia, unspecified; G62.9 Polyneuropathy, unspecified
CPT/HCPCS: A9270; G0463

== ENCOUNTER 2024-09-02 01:36 | Day surgery (SDC) | payer OTHER ==
[2024-09-02] MEDS ORDERED: Lidocaine HCl 4% Cream 5 GM ONE (10:48)
== END 2024-09-02 23:00 | disposition home or self-care (01) ==
LOC: WOUND 01:36
DX: L97.822 Non-pressure chronic ulcer of other part of left lower leg with fat layer exposed (principal); L89.622 Pressure ulcer of left heel, stage 2; L97.522 Non-pressure chronic ulcer of other part of left foot with fat layer exposed; L97.512 Non-pressure chronic ulcer of other part of right foot with fat layer exposed; I87.2 Venous insufficiency (chronic) (peripheral)
CPT/HCPCS: A6213; A9270

== ENCOUNTER 2024-09-07 01:34 | Day surgery (SDC) | payer OTHER ==
[2024-09-07] MEDS ORDERED: Lidocaine HCl 4% Cream 5 GM ONE (08:56)
[2024-09-07] MEDS ORDERED: Triamcinolone Acet 0.1% Cream 15 gm ONE (09:40)
== END 2024-09-07 23:00 | disposition home or self-care (01) ==
LOC: WOUND 01:34
DX: L97.822 Non-pressure chronic ulcer of other part of left lower leg with fat layer exposed (principal); L89.612 Pressure ulcer of right heel, stage 2; I87.2 Venous insufficiency (chronic) (peripheral); I12.9 Hypertensive chronic kidney disease with stage 1 through stage 4 chronic kidney disease, or unspecified chronic kidney disease; N18.9 Chronic kidney disease, unspecified; E78.5 Hyperlipidemia, unspecified; M79.7 Fibromyalgia
CPT/HCPCS: A6213; A9270

== ENCOUNTER 2024-09-14 09:17 | Day surgery (SDC) | payer OTHER ==
[2024-09-14] MEDS ORDERED: Lidocaine HCl 4% Cream 5 GM ONE (09:27)
[2024-09-14] MEDS ORDERED: Triamcinolone Acet 0.1% Cream 15 gm ONE (09:59)
== END 2024-09-14 23:00 | disposition home or self-care (01) ==
LOC: WOUND 09:17
DX: L97.822 Non-pressure chronic ulcer of other part of left lower leg with fat layer exposed (principal); L89.612 Pressure ulcer of right heel, stage 2; L97.512 Non-pressure chronic ulcer of other part of right foot with fat layer exposed; I87.2 Venous insufficiency (chronic) (peripheral); E78.5 Hyperlipidemia, unspecified; I12.9 Hypertensive chronic kidney disease with stage 1 through stage 4 chronic kidney disease, or unspecified chronic kidney disease; N18.9 Chronic kidney disease, unspecified
CPT/HCPCS: A6213; A9270

== ENCOUNTER 2024-09-19 12:32 | Inpatient (IN) | payer OTHER ==
[~2024-09-19] VITALS: Ht 167.6 cm; Wt 117.9 kg
[2024-09-19] MEDS ORDERED: Lactated Ringer's 1,000 ML IV ONE ×2 (14:20→16:15)
[2024-09-19] MEDS ORDERED: FentaNYL Citrate 50 MCG/ML 2 ML Injection IV ONE (14:20)
[2024-09-19 14:22] LABS: BASOPHILS ABSOLUTE AUTO 0.01 K/mm3 (0.00-0.23); BASOPHILS PERCENT AUTO 0 % (0-2); EOSINOPHILS ABSOLUTE AUTO 0.06 K/mm3 (0.00-0.68); EOSINOPHILS PERCENT AUTO 1 % (0-6); Hematocrit 31.3 % (33.0-51.0); Hemoglobin 10.3 g/dL (11.5-16.0); IMMATURE GRAN ABSOLUTE AUTO 0.04 K/mm3 (0.00-0.10); IMMATURE GRAN PERCENT AUTO 0 % (0-1); LYMPHOCYTES ABSOLUTE AUTO 1.65 K/mm3 (0.84-5.20); LYMPHOCYTES PERCENT AUTO 17 % (21-46); MONOCYTES ABSOLUTE AUTO 0.51 K/mm3 (0.16-1.47); MONOCYTES PERCENT AUTO 5 % (4-13); Mean Corpuscular HGB 28.4 pg (26.0-34.0); Mean Corpuscular HGB Conc 32.9 g/dL (31.5-36.5); Mean Corpuscular Volume 86 fL (80-100); NEUTROPHILS ABSOLUTE AUTO 7.59 K/mm3 (1.96-9.15); NEUTROPHILS PERCENT AUTO 77 % (41-73); Platelet Count 245 K/mm3 (150-400); RDW Coefficient Variation 15.4 % (11.7-14.2); RDW Standard Deviation 48.5 fL (35.1-46.3); Red Blood Cell Count 3.63 M/mm3 (3.80-5.20); White Blood Cell Count 9.86 K/mm3 (4.00-11.30)
[2024-09-19 14:47] LABS: Albumin/Globulin Ratio 0.7 (0.8-1.8); Bilirubin, Total 0.6 mg/dL (0.1-1.0); Bun/Creatinine Ratio 25.3 (12.0-20.0); Calcium, Blood 8.8 mg/dL (8.5-10.1); Creatinine, Blood 2.89 mg/dL (0.40-1.00); Globulin, Blood 4.1 g/dL (2.2-4.0); Potassium, Blood 3.9 mmol/L (3.5-5.5); Total Protein, Blood 7.1 g/dL (6.4-8.2)
[2024-09-19] MEDS ORDERED: BUSPIRONE HCL7.5 M6 PO (15:16)
[2024-09-19] MEDS ORDERED: FLUTICASONE-SA1 EAC9 INH (15:16)
[2024-09-19] MEDS ORDERED: ZOLOFT10013 PO (15:17)
[2024-09-19] MEDS ORDERED: CATAPRES0.1 MG PO (15:17)
[2024-09-19] MEDS ORDERED: TOPI25 PO (15:18)
[2024-09-19] MEDS ORDERED: ESTRADIOL42.5 GM VAG (15:18)
[2024-09-19] MEDS ORDERED: ROSUVASTATIN CA10 MG PO (15:18)
[2024-09-19] MEDS ORDERED: CefTRIAXone Sodium 1,000 MG in NS 100 ML IV ONE (15:20)
[2024-09-19] MEDS ORDERED: Cyclobenzaprine HCl 10 MG Tab PO PRN (15:40)
[2024-09-19] MEDS ORDERED: TraMADol HCl 50 MG Tab PO PRN (15:45)
[2024-09-19] MEDS ORDERED: Albuterol HFA200 ACT/6.7 GM INH INH PRN (15:55)
[2024-09-19] MEDS ORDERED: Ondansetron 4 MG SoluTab MM PRN (16:05)
[2024-09-19] MEDS ORDERED: OxyCODONE HCL 5 MG TAB PO PRN (16:05)
[2024-09-19] MEDS ORDERED: Acetaminophen 325 MG TABLET PO PRN (16:10)
[2024-09-19] MEDS ORDERED: Docusate Sodium/Senna 1 Tab PO PRN (16:10)
[2024-09-19] MEDS ORDERED: Lactated Ringer's 1,000 ML IV SCH (16:10)
[2024-09-19] MEDS ORDERED: Morphine Sulfate 4 MG/1 ML Injection IV PRN (16:10)
[2024-09-19] MEDS ORDERED: Insulin Human Lispro 100 Units/ML 3ML Syringe SC SCH (16:30)
[2024-09-19 18:01] VITALS: BP 85/71
[2024-09-19] MEDS ORDERED: Mometasone/Formoterol MDI 200/5 mcg 13 GM INH SCH (18:40)
[2024-09-19 19:36] VITALS: BP 100/60
--- NOTE | 2024-09-19 19:37 | NUR ---
MAKENNA WAS ADMITTED TO THE MEDICAL FLOOR, SHE WAS TRANSFERRED TO THE MEDICAL FLOOR BED WITH A SLIDE SHEET FROM THE ER [facility]. SHE IS ON ROOM AIR. PT IS INCONTINENT OF STOOL, WITH LOOSE SOFT STOOLS IN THE ER. MAKES LOTS OF URINE. SHE IS C/O PAIN AND WEAKNESS FROM RIGHT FOOT WOUND THAT PREVENTED HER FROM AMBULATING IN THE 2-3 DAYS PRIOR TO COMING TO THE HOSPITAL. LITTLE PO INTAKE. BLOOD PRESSURES ARE SOFT. IV IN THE LEFT FORE ARM. PT IS A&O X4, VERY TALKATIVE. LUNGS CLEAR WITH EXPIRATORY WHEEZING. SKIN ISSUES NOTED IN ASSESSMENT, AND PICTURES PLACED IN CHART. REDNESS TO SKIN FOLDS UNDER BREASTS,AND IN GROIN AREA. MCMANUS SILVER MICROBIAL SHEETS PLACED IN GROIN FOLDS. PMH: COPD, DEG DISC DX, HTN, DEPRESSION, PVD. PT STATES SHE LIVES ALONE IN HER OWN HOME. SHE IS A PT AT THE WOUND CARE CLINIC.
[2024-09-19] MEDS ORDERED: CeFAZolin Sodium 1,000 MG in NS 50 ML IV SCH (21:00)
[2024-09-19] MEDS ORDERED: CloNIDine 0.1 MG Tab PO SCH (21:00)
[2024-09-19] MEDS ORDERED: Topiramate 25 MG Tab PO SCH (21:00)
[2024-09-19] MEDS ORDERED: BusPIRone HCl 5 MG Tab PO SCH (21:00)
[2024-09-19 23:51] VITALS: BP 101/69
[2024-09-20 03:29] VITALS: BP 99/57
[2024-09-20 05:03] LABS: BASOPHILS ABSOLUTE AUTO 0.01 K/mm3 (0.00-0.23); BASOPHILS PERCENT AUTO 0 % (0-2); EOSINOPHILS ABSOLUTE AUTO 0.07 K/mm3 (0.00-0.68); EOSINOPHILS PERCENT AUTO 1 % (0-6); Hematocrit 26.1 % (33.0-51.0); Hemoglobin 8.5 g/dL (11.5-16.0); IMMATURE GRAN ABSOLUTE AUTO 0.03 K/mm3 (0.00-0.10); IMMATURE GRAN PERCENT AUTO 0 % (0-1); LYMPHOCYTES ABSOLUTE AUTO 0.91 K/mm3 (0.84-5.20); LYMPHOCYTES PERCENT AUTO 12 % (21-46); MONOCYTES ABSOLUTE AUTO 0.47 K/mm3 (0.16-1.47); MONOCYTES PERCENT AUTO 6 % (4-13); Mean Corpuscular HGB 28.1 pg (26.0-34.0); Mean Corpuscular HGB Conc 32.6 g/dL (31.5-36.5); Mean Corpuscular Volume 86 fL (80-100); NEUTROPHILS ABSOLUTE AUTO 5.86 K/mm3 (1.96-9.15); NEUTROPHILS PERCENT AUTO 80 % (41-73); Platelet Count 185 K/mm3 (150-400); RDW Coefficient Variation 15.3 % (11.7-14.2); RDW Standard Deviation 48.2 fL (35.1-46.3); Red Blood Cell Count 3.03 M/mm3 (3.80-5.20); White Blood Cell Count 7.35 K/mm3 (4.00-11.30)
[2024-09-20 05:32] LABS: Albumin, Blood 2.5 g/dL (3.4-5.0); Anion Gap 11 mmol/L (3-11); Blood Urea Nitrogen 64 mg/dL (8-24); Bun/Creatinine Ratio 28.1 (12.0-20.0); CO2, Blood 25 mmol/L (21-32); Calcium, Blood 8.6 mg/dL (8.5-10.1); Chloride, Blood 108 mmol/L (98-108); Creatinine, Blood 2.28 mg/dL (0.40-1.00); Glomerular Filtration Rate 24 (60-); Glucose, Blood 107 mg/dL (70-99); Magnesium, Blood 2.5 mg/dL (1.6-2.4); Phosphorus, Blood 3.5 mg/dL (2.5-4.9); Potassium, Blood 3.9 mmol/L (3.5-5.5); Sodium, Blood 140 mmol/L (136-145)
[2024-09-20 08:00] VITALS: BP 80/49
[2024-09-20] MEDS ORDERED: dilTIAZem HCL 120 MG CAP.CD PO SCH (09:00)
[2024-09-20] MEDS ORDERED: Sertraline HCl 100 MG Tab PO SCH (09:00)
[2024-09-20] MEDS ORDERED: Empagliflozin 10 MG TAB PO SCH (09:00)
[2024-09-20] MEDS ORDERED: Rosuvastatin Calcium 10 MG Tab PO SCH (09:00)
[2024-09-20] MEDS ORDERED: Lisinopril 10 MG Tab PO SCH (09:00)
[2024-09-20 14:42] LABS: Bun/Creatinine Ratio 29.8 (12.0-20.0); Calcium, Blood 8.7 mg/dL (8.5-10.1); Creatinine, Blood 1.81 mg/dL (0.40-1.00); Potassium, Blood 3.9 mmol/L (3.5-5.5)
[2024-09-20] MEDS ORDERED: CeFAZolin Sodium 2,000 MG in NS 100 ML IV SCH (16:00)
[2024-09-20 16:18] VITALS: BP 121/62
--- NOTE | 2024-09-20 16:46 | NUR ---
PT HAD C/O PAIN ALL SHIFT, SEE EMAR FOR DETAILS. PT HAD NO C/O SOB OR CHEST PAIN. THIS NURSE CHANGED PT'S BANDAGE PER ORDERS. PT WAS UPSET A FEW TIMES OF THE SHIFT FOR PAIN MANAGMENT AND HER CALLS NOT BE ANSWERED IN A TIMELEY MANNER.
[2024-09-20 19:49] VITALS: BP 150/80
[2024-09-20] MEDS ORDERED: Estradiol Vag Cream 0.1 MG/G 42.5 GM Tube VAG SCH (21:00)
[2024-09-21 02:15] VITALS: BP 140/80
[2024-09-21 05:25] LABS: BASOPHILS ABSOLUTE AUTO 0.01 K/mm3 (0.00-0.23); BASOPHILS PERCENT AUTO 0 % (0-2); EOSINOPHILS ABSOLUTE AUTO 0.08 K/mm3 (0.00-0.68); EOSINOPHILS PERCENT AUTO 1 % (0-6); Hemoglobin 8.8 g/dL (11.5-16.0); IMMATURE GRAN ABSOLUTE AUTO 0.03 K/mm3 (0.00-0.10); IMMATURE GRAN PERCENT AUTO 0 % (0-1); LYMPHOCYTES ABSOLUTE AUTO 0.96 K/mm3 (0.84-5.20); LYMPHOCYTES PERCENT AUTO 13 % (21-46); MONOCYTES PERCENT AUTO 7 % (4-13); Mean Corpuscular HGB 28.2 pg (26.0-34.0); Mean Corpuscular HGB Conc 32.6 g/dL (31.5-36.5); Mean Corpuscular Volume 87 fL (80-100); Mean Platelet Volume 9.4 fL (9.1-12.4); NEUTROPHILS ABSOLUTE AUTO 5.63 K/mm3 (1.96-9.15); NEUTROPHILS PERCENT AUTO 78 % (41-73); Platelet Count 195 K/mm3 (150-400); RDW Coefficient Variation 15.3 % (11.7-14.2); RDW Standard Deviation 48.4 fL (35.1-46.3); Red Blood Cell Count 3.12 M/mm3 (3.80-5.20); White Blood Cell Count 7.21 K/mm3 (4.00-11.30)
[2024-09-21 05:53] LABS: Albumin, Blood 2.4 g/dL (3.4-5.0); Anion Gap 11 mmol/L (3-11); Blood Urea Nitrogen 41 mg/dL (8-24); Bun/Creatinine Ratio 27.7 (12.0-20.0); CO2, Blood 23 mmol/L (21-32); Calcium, Blood 9.1 mg/dL (8.5-10.1); Chloride, Blood 112 mmol/L (98-108); Creatinine, Blood 1.48 mg/dL (0.40-1.00); Glomerular Filtration Rate 40 (60-); Glucose, Blood 110 mg/dL (70-99); Phosphorus, Blood 2.8 mg/dL (2.5-4.9); Potassium, Blood 3.9 mmol/L (3.5-5.5); Sodium, Blood 142 mmol/L (136-145)
[2024-09-21 07:11] VITALS: BP 111/71
--- NOTE | 2024-09-21 18:23 | NUR ---
SUMMARY- AAOX4. PT ON RA. PT STATES SHE IS NOT ABLE TO GET OOB THIS SHIFT. PT REFUSING TO WORK WITH PT. PT IS USING THE BEDPAN. PAIN WELL CONTROLLED WITH EMAR PAIN MEDS. THIS RN SPOKE WITH SON AND PT EXTENSIVELY REGARDING PT'S CONDITION AND PLAN.
[2024-09-21 20:49] VITALS: BP 153/92
[2024-09-22 05:12] LABS: BASOPHILS ABSOLUTE AUTO 0.02 K/mm3 (0.00-0.23); BASOPHILS PERCENT AUTO 0 % (0-2); EOSINOPHILS ABSOLUTE AUTO 0.08 K/mm3 (0.00-0.68); EOSINOPHILS PERCENT AUTO 1 % (0-6); Hematocrit 26.1 % (33.0-51.0); Hemoglobin 8.4 g/dL (11.5-16.0); IMMATURE GRAN ABSOLUTE AUTO 0.04 K/mm3 (0.00-0.10); IMMATURE GRAN PERCENT AUTO 1 % (0-1); LYMPHOCYTES ABSOLUTE AUTO 1.06 K/mm3 (0.84-5.20); LYMPHOCYTES PERCENT AUTO 16 % (21-46); MONOCYTES ABSOLUTE AUTO 0.47 K/mm3 (0.16-1.47); MONOCYTES PERCENT AUTO 7 % (4-13); Mean Corpuscular HGB 28.2 pg (26.0-34.0); Mean Corpuscular HGB Conc 32.2 g/dL (31.5-36.5); Mean Corpuscular Volume 88 fL (80-100); Mean Platelet Volume 9.2 fL (9.1-12.4); NEUTROPHILS ABSOLUTE AUTO 4.84 K/mm3 (1.96-9.15); NEUTROPHILS PERCENT AUTO 74 % (41-73); Platelet Count 202 K/mm3 (150-400); RDW Coefficient Variation 15.1 % (11.7-14.2); RDW Standard Deviation 48.6 fL (35.1-46.3); Red Blood Cell Count 2.98 M/mm3 (3.80-5.20); White Blood Cell Count 6.51 K/mm3 (4.00-11.30)
[2024-09-22 06:02] LABS: Albumin, Blood 2.4 g/dL (3.4-5.0); Anion Gap 9 mmol/L (3-11); Blood Urea Nitrogen 30 mg/dL (8-24); Bun/Creatinine Ratio 24.8 (12.0-20.0); CO2, Blood 25 mmol/L (21-32); Calcium, Blood 8.9 mg/dL (8.5-10.1); Chloride, Blood 113 mmol/L (98-108); Creatinine, Blood 1.21 mg/dL (0.40-1.00); Glomerular Filtration Rate 51 (60-); Glucose, Blood 89 mg/dL (70-99); Phosphorus, Blood 3.2 mg/dL (2.5-4.9); Potassium, Blood 4.2 mmol/L (3.5-5.5); Sodium, Blood 143 mmol/L (136-145)
[2024-09-22 07:56] VITALS: BP 150/80
--- NOTE | 2024-09-22 10:30 | NUR ---
WOUND CARE CLEANSED WOUND WITH NS, PAT DRIED. COVERED WITH OPTIFOAM AND WRAPPED WITH EDWIN BANDAGE TO SECURE. PT TOLERATED WELL
[2024-09-22] MEDS ORDERED: OXYC5 PO (15:26)
[2024-09-22] MEDS ORDERED: CEPHALEXIN500 M2 PO (15:27)
--- NOTE | 2024-09-22 16:02 | NUR ---
PT WAS DISCHARGED HOME. PT HAD NO QUESTIONS OR CONCERNS. PT LEFT WITH D/C PACKET AND HARD SCRIPT. ALL PIV'S REMOVED.
== END 2024-09-22 15:56 | disposition home health service (06) | DRG 683 ==
LOC: ER 12:32 → MEDS 12:33
PROVIDERS: Physician Assistant; ADMIT Family Medicine
DX: N17.9 Acute kidney failure, unspecified (principal); E87.21 Acute metabolic acidosis; L03.115 Cellulitis of right lower limb; E86.0 Dehydration; N18.32 Chronic kidney disease, stage 3b; E11.22 Type 2 diabetes mellitus with diabetic chronic kidney disease; F32.A Depression, unspecified; Z98.51 Tubal ligation status; Z90.49 Acquired absence of other specified parts of digestive tract; Z96.642 Presence of left artificial hip joint; Z98.890 Other specified postprocedural states; Z79.899 Other long term (current) drug therapy; L89.612 Pressure ulcer of right heel, stage 2; Z87.442 Personal history of urinary calculi
CPT/HCPCS: 36415; 73630; 80048; 80053; 80069; 82947; 83605; 83735; 85025; 94640; 94664; 94760; 96365; 96375; 97161; 97530; 99285-25; A9270; G0378; J0690; J0696; J2270; J3010; J7120

== ENCOUNTER → 2024-09-28 | Outpatient (CLI) | payer OTHER ==
[~2024-09-28] MED LIST changes: +CATAPRES0.1 MG PO; +CEPHALEXIN500 M2 PO; +ESTRADIOL42.5 GM VAG; +FLUTICASONE-SA1 EAC9 INH; +OXYC5 PO; +ROSUVASTATIN CA10 MG PO; +ZOLOFT10013 PO
== END | disposition home or self-care (01) ==
LOC: LAB SHORT 18:12 → LAB 18:12
DX: M86.9 Osteomyelitis, unspecified (principal)
CPT/HCPCS: 87070; 87075; 87076; 87185; 87205

== ENCOUNTER 2024-09-29 16:35 | Inpatient (IN) | payer OTHER ==
[~2024-09-29] VITALS: Ht 172.7 cm; Wt 118.1 kg
[~2024-09-29 16:35] MED LIST changes: -ACET325 PO; -ALBU2.5V5 INH; -CEFP200 PO; -DOXY100 PO; -FURO40 PO; -INCRUSE ELLIPTA INH; -MICONAZOLE NITR85 GM TOP; -SERT25 PO; -VISBIOME 112.51 EACH PO
[2024-09-29 17:25] LABS: BASOPHILS ABSOLUTE AUTO 0.02 K/mm3 (0.00-0.23); BASOPHILS PERCENT AUTO 0 % (0-2); EOSINOPHILS ABSOLUTE AUTO 0.09 K/mm3 (0.00-0.68); EOSINOPHILS PERCENT AUTO 1 % (0-6); Hematocrit 32.6 % (33.0-51.0); Hemoglobin 10.3 g/dL (11.5-16.0); IMMATURE GRAN ABSOLUTE AUTO 0.04 K/mm3 (0.00-0.10); IMMATURE GRAN PERCENT AUTO 1 % (0-1); LYMPHOCYTES ABSOLUTE AUTO 1.49 K/mm3 (0.84-5.20); LYMPHOCYTES PERCENT AUTO 23 % (21-46); MONOCYTES ABSOLUTE AUTO 0.38 K/mm3 (0.16-1.47); MONOCYTES PERCENT AUTO 6 % (4-13); Mean Corpuscular HGB 27.9 pg (26.0-34.0); Mean Corpuscular HGB Conc 31.6 g/dL (31.5-36.5); Mean Corpuscular Volume 88 fL (80-100); NEUTROPHILS ABSOLUTE AUTO 4.37 K/mm3 (1.96-9.15); NEUTROPHILS PERCENT AUTO 69 % (41-73); Platelet Count 303 K/mm3 (150-400); RDW Coefficient Variation 15.1 % (11.7-14.2); RDW Standard Deviation 48.7 fL (35.1-46.3); Red Blood Cell Count 3.69 M/mm3 (3.80-5.20); White Blood Cell Count 6.39 K/mm3 (4.00-11.30)
[2024-09-29 17:50] LABS: Albumin, Blood 3.1 g/dL (3.4-5.0); Albumin/Globulin Ratio 0.8 (0.8-1.8); Bilirubin, Total 0.4 mg/dL (0.1-1.0); Bun/Creatinine Ratio 17.6 (12.0-20.0); Calcium, Blood 9.2 mg/dL (8.5-10.1); Creatinine, Blood 1.48 mg/dL (0.40-1.00); Globulin, Blood 3.8 g/dL (2.2-4.0); Total Protein, Blood 6.9 g/dL (6.4-8.2)
[2024-09-29] MEDS ORDERED: CefTRIAXone Sodium 1,000 MG in NS 100 ML IV ONE (22:25)
[2024-09-29] MEDS ORDERED: FLU VACC TS2024-25(6MOS UP)/PF 45 MCG/0.5 ML SYRINGE IM ONE (23:40)
[2024-09-29] MEDS ORDERED: Acetaminophen 325 MG TABLET PO PRN (23:45)
[2024-09-30] MEDS ORDERED: Vancomycin HCL 2,000 MG in NS 500 ML IV ONE (00:10)
[2024-09-30] MEDS ORDERED: OxyCODONE HCL 5 MG TAB PO PRN (00:35)
[2024-09-30 06:33] LABS: BASOPHILS ABSOLUTE AUTO 0.02 K/mm3 (0.00-0.23); BASOPHILS PERCENT AUTO 0 % (0-2); EOSINOPHILS ABSOLUTE AUTO 0.13 K/mm3 (0.00-0.68); EOSINOPHILS PERCENT AUTO 2 % (0-6); Hematocrit 33.9 % (33.0-51.0); Hemoglobin 10.5 g/dL (11.5-16.0); IMMATURE GRAN ABSOLUTE AUTO 0.03 K/mm3 (0.00-0.10); IMMATURE GRAN PERCENT AUTO 1 % (0-1); LYMPHOCYTES ABSOLUTE AUTO 1.55 K/mm3 (0.84-5.20); LYMPHOCYTES PERCENT AUTO 26 % (21-46); MONOCYTES ABSOLUTE AUTO 0.38 K/mm3 (0.16-1.47); MONOCYTES PERCENT AUTO 7 % (4-13); Mean Corpuscular HGB 27.6 pg (26.0-34.0); Mean Corpuscular Volume 89 fL (80-100); Mean Platelet Volume 9.1 fL (9.1-12.4); NEUTROPHILS ABSOLUTE AUTO 3.78 K/mm3 (1.96-9.15); NEUTROPHILS PERCENT AUTO 64 % (41-73); Platelet Count 308 K/mm3 (150-400); RDW Coefficient Variation 15.3 % (11.7-14.2); RDW Standard Deviation 49.8 fL (35.1-46.3); White Blood Cell Count 5.89 K/mm3 (4.00-11.30)
[2024-09-30 06:57] LABS: Albumin/Globulin Ratio 0.8 (0.8-1.8); Bilirubin, Total 0.2 mg/dL (0.1-1.0); Bun/Creatinine Ratio 18.1 (12.0-20.0); Calcium, Blood 8.9 mg/dL (8.5-10.1); Creatinine, Blood 1.44 mg/dL (0.40-1.00); Globulin, Blood 3.9 g/dL (2.2-4.0); Magnesium, Blood 2.2 mg/dL (1.6-2.4); Potassium, Blood 4.3 mmol/L (3.5-5.5); Total Protein, Blood 6.9 g/dL (6.4-8.2)
[2024-09-30 07:44] VITALS: BP 108/95
[2024-09-30] MEDS ORDERED: ASPI81CH PO (07:58)
--- NOTE | 2024-09-30 08:03 | NUR ---
Pt arrived to 357 via gurney, able to stand and tx to bed, a/ox4, highly anxious about loosing her leg, cooperative with care, follows commands well, lungs are clear t/o, resp even and unlabored, no cough noted, hrr, +1 edema noted to b/l le, pp faint, cap refill<3 sec, vs stable afebrile, piv to lfa site is clear and patent, btx4, abd flat soft nontender, voids without diff, skin has wound to left posterior that has dressing in place, no drainage noted, maew, ambulates with some difficulty, aliza, is very concerned about her antibiotics, and that the DrRy consults with her Dr. oriented to room layout and call system, call light in reach.
[2024-09-30] MEDS ORDERED: Gabapentin 300 MG Cap PO SCH ×2 (09:00→21:00)
[2024-09-30] MEDS ORDERED: CloNIDine 0.1 MG Tab PO SCH (09:00)
[2024-09-30] MEDS ORDERED: Sertraline HCl 100 MG Tab PO SCH (09:00)
[2024-09-30] MEDS ORDERED: Empagliflozin 10 MG TAB PO SCH (09:00)
[2024-09-30] MEDS ORDERED: BusPIRone HCl 5 MG Tab PO SCH (09:00)
[2024-09-30] MEDS ORDERED: Topiramate 25 MG Tab PO SCH (09:00)
[2024-09-30] MEDS ORDERED: Lisinopril 10 MG Tab PO SCH (09:00)
[2024-09-30] MEDS ORDERED: dilTIAZem HCL 120 MG CAP.CD PO SCH (09:00)
[2024-09-30] MEDS ORDERED: Lactobacil 2-S.Thermo-Bifido 1 1 Cap PO SCH (09:00)
[2024-09-30] MEDS ORDERED: Enoxaparin 40 MG/0.4 ML SYR SC SCH (09:00)
[2024-09-30] MEDS ORDERED: Aspirin 81 MG Chew PO SCH (09:00)
[2024-09-30] MEDS ORDERED: Cyclobenzaprine HCl 10 MG Tab PO PRN (09:05)
[2024-09-30] MEDS ORDERED: Mometasone/Formoterol MDI 200/5 mcg 13 GM INH SCH (09:15)
[2024-09-30] MEDS ORDERED: Albuterol HFA200 ACT/6.7 GM INH INH PRN (09:15)
[2024-09-30] MEDS ORDERED: NS 250 ML IV PRN (09:55)
[2024-09-30] MEDS ORDERED: Cefepime HCl 2,000 MG in NS 100 ML IV SCH (10:00)
--- NOTE | 2024-09-30 10:35 | NUR ---
pt continues to be highly anxious, even tearful, asking the same question several times. brought her some food for breakfast, medicated for pain, call light in reach.
[2024-09-30] MEDS ORDERED: Miconazole Nitrate 2% 85 GM PWD TOP SCH (14:00)
[2024-09-30 15:50] VITALS: BP 138/88
--- NOTE | 2024-09-30 17:16 | NUR ---
Spiritual Care Visit Attempted. Attempts were made on two occassions on 09/30. Pt. was in the shower during first attempt, and somnolent in the second attempt.
--- NOTE | 2024-09-30 19:17 | NUR ---
pt calmed this afternoon, and has been better this evening, am able to have a conversation with her, she is very upset about being thought she is a diabetic, and very frustrated she has a consistant carb diet, she did have a shower, new dressing placed to wound, and bandaid to small one above it, pictures are in chart, mepilex dressing to quarter size wound to left reynoso, no further changes this shift. call light in reach.
[2024-09-30 19:43] VITALS: BP 152/88
[2024-09-30] MEDS ORDERED: MethylPREDNISolone Sod Succ 250 MG in Dextrose 5% 50 ML IV SCH (21:00)
[2024-09-30] MEDS ORDERED: MethylPREDNISolone Sod Succ 125 MG Vial IV SCH (21:00)
[2024-09-30] MEDS ORDERED: Vancomycin HCL 1,750 MG in NS 500 ML IV SCH (23:00)
[2024-10-01 04:25] VITALS: BP 142/83
--- NOTE | 2024-10-01 04:51 | NUR ---
SHIFT SUMMARY PT VERBALIZING ANXIETY ABOUT HOW QUICKLY HER RLE WOUND HAS PROGRESSED AND FEAR ABOUT POSSIBLE AMPUTATION. TIME SPENT WITH PT AND EMOTIONAL SUPPORT PROVIDED. DRESSING INTACT TO WOUND AND SURROUNDIING CELLULITIS NOTED. IV ANTIBIOTICS AND IV STEROIDS PER ORDER. MEDICATED FOR PAIN WITH OXYCODONE/TYLENOL PER EMAR. PT INDEPENDENT IN ROOM WITH FWW. SLEPT LONG INTERVALS THROUGH THE NIGHT. BED IN LOWEST POSITION, CALL LIGHT WITHIN REACH, SIDERAILS UP X2.
[2024-10-01 05:47] LABS: BASOPHILS ABSOLUTE AUTO 0.01 K/mm3 (0.00-0.23); BASOPHILS PERCENT AUTO 0 % (0-2); EOSINOPHILS ABSOLUTE AUTO 0.01 K/mm3 (0.00-0.68); EOSINOPHILS PERCENT AUTO 0 % (0-6); Hematocrit 36.9 % (33.0-51.0); Hemoglobin 11.3 g/dL (11.5-16.0); IMMATURE GRAN ABSOLUTE AUTO 0.04 K/mm3 (0.00-0.10); IMMATURE GRAN PERCENT AUTO 1 % (0-1); LYMPHOCYTES ABSOLUTE AUTO 0.86 K/mm3 (0.84-5.20); LYMPHOCYTES PERCENT AUTO 13 % (21-46); MONOCYTES ABSOLUTE AUTO 0.04 K/mm3 (0.16-1.47); MONOCYTES PERCENT AUTO 1 % (4-13); Mean Corpuscular HGB 27.4 pg (26.0-34.0); Mean Corpuscular HGB Conc 30.6 g/dL (31.5-36.5); Mean Corpuscular Volume 89 fL (80-100); Mean Platelet Volume 9.2 fL (9.1-12.4); NEUTROPHILS ABSOLUTE AUTO 5.45 K/mm3 (1.96-9.15); NEUTROPHILS PERCENT AUTO 85 % (41-73); Platelet Count 330 K/mm3 (150-400); RDW Coefficient Variation 14.9 % (11.7-14.2); RDW Standard Deviation 48.5 fL (35.1-46.3); Red Blood Cell Count 4.13 M/mm3 (3.80-5.20); White Blood Cell Count 6.41 K/mm3 (4.00-11.30)
[2024-10-01] MEDS ORDERED: Omeprazole 20 MG CapCR PO SCH (06:00)
[2024-10-01 06:12] LABS: Albumin, Blood 3.2 g/dL (3.4-5.0); Albumin/Globulin Ratio 0.8 (0.8-1.8); Bilirubin, Total 0.3 mg/dL (0.1-1.0); Bun/Creatinine Ratio 20.9 (12.0-20.0); Creatinine, Blood 1.39 mg/dL (0.40-1.00); Potassium, Blood 4.4 mmol/L (3.5-5.5); Total Protein, Blood 7.2 g/dL (6.4-8.2)
[2024-10-01 07:20] VITALS: BP 132/76
[2024-10-01] MEDS ORDERED: Insulin Human Lispro 100 Units/ML 3ML Syringe SC SCH (07:30)
[2024-10-01] MEDS ORDERED: Rosuvastatin Calcium 10 MG Tab PO SCH (09:00)
[2024-10-01 15:46] VITALS: BP 155/83
[2024-10-01] MEDS ORDERED: LORazepam 1 MG Tab PO PRN (15:50)
--- NOTE | 2024-10-01 18:29 | NUR ---
NO ACUTE CHANES, PATIENT CRYING AND ANXIOUS ABOUT SKIN WOUND FAMILY BILLS, PATIENT CONTINUED TO CRY AND CHANGE INSTRUCTIONS FOR WOUND CARE PER WHAT DR LAST CAME IN ROOM, MEDICATED FOR PAIN AND ANXIETY, EDEMA IMPROVED, REDNESS IMPROVED, IV ANTIBIOTICS, 2 DIFFERENT DRESSING DONE TO PATIENTS RIGHT ANKLE TODAY PER PATIENT REQUEST THAT HER SKIN FELT LIKE IT WAS ON FIRE, CALL LIGHT WITH IN REACH, WILL RELAY TO PM RN
[2024-10-01 19:01] VITALS: BP 133/77
[2024-10-01] MEDS ORDERED: Arginine/Glutamine/Calcium Hmb 1 Packet PO SCH (21:00)
[2024-10-02 04:17] VITALS: BP 134/77
[2024-10-02 05:08] LABS: BASOPHILS ABSOLUTE AUTO 0.01 K/mm3 (0.00-0.23); BASOPHILS PERCENT AUTO 0 % (0-2); EOSINOPHILS PERCENT AUTO 0 % (0-6); Hematocrit 31.5 % (33.0-51.0); Hemoglobin 9.9 g/dL (11.5-16.0); IMMATURE GRAN ABSOLUTE AUTO 0.07 K/mm3 (0.00-0.10); IMMATURE GRAN PERCENT AUTO 1 % (0-1); LYMPHOCYTES ABSOLUTE AUTO 0.99 K/mm3 (0.84-5.20); LYMPHOCYTES PERCENT AUTO 9 % (21-46); MONOCYTES ABSOLUTE AUTO 0.19 K/mm3 (0.16-1.47); MONOCYTES PERCENT AUTO 2 % (4-13); Mean Corpuscular HGB 27.9 pg (26.0-34.0); Mean Corpuscular HGB Conc 31.4 g/dL (31.5-36.5); Mean Corpuscular Volume 89 fL (80-100); NEUTROPHILS ABSOLUTE AUTO 10.35 K/mm3 (1.96-9.15); NEUTROPHILS PERCENT AUTO 89 % (41-73); Platelet Count 356 K/mm3 (150-400); RDW Coefficient Variation 14.8 % (11.7-14.2); RDW Standard Deviation 47.8 fL (35.1-46.3); Red Blood Cell Count 3.55 M/mm3 (3.80-5.20); White Blood Cell Count 11.61 K/mm3 (4.00-11.30)
--- NOTE | 2024-10-02 05:14 | NUR ---
SHIFT SUMMARY PATIENT HAD NO ACUTE CHANGES. ALERT ORIENTED AND SBA W/FWW TO BR. CBG 167. DENIES CHEST PAIN, SOB, AND N/V. ON 2L O2 NC AND RA BASELINE. VSS/AFEBRILE. PIV INTACT. IV ABXS INFUSED. REPORTED LEG PAIN X 2 AND OXYCODONE 5 MG GIVEN PER EMAR. PATIENT ANXIOUS AT TIMES. CALL LIGHT IN REACH. BED IN LOWEST POSITION. WILL CONTINUE TO MONITOR UNTIL DAY SHIFT NURSE ASSUMES CARE.
[2024-10-02 05:50] LABS: Albumin/Globulin Ratio 0.8 (0.8-1.8); Bilirubin, Total 0.3 mg/dL (0.1-1.0); Calcium, Blood 8.9 mg/dL (8.5-10.1); Creatinine, Blood 1.37 mg/dL (0.40-1.00); Globulin, Blood 3.6 g/dL (2.2-4.0); Potassium, Blood 4.9 mmol/L (3.5-5.5); Total Protein, Blood 6.6 g/dL (6.4-8.2)
[2024-10-02 07:35] VITALS: BP 139/68
[2024-10-02 15:49] VITALS: BP 136/74
--- NOTE | 2024-10-02 18:41 | NUR ---
NO ACUTE CHANGES, PATIENT PLEASANT AND COOPERATIVE TO CARE TODAY, WORKED WITH PT IN ROOM, SON VISITED, NEW DRESSING TO RIGHT ANKLE SITE, NEW IV PLACED, STEROIDS DISCONITNUED, IV ANTIBIOTICS STILL ORDERED, CALL LIGHT WITH IN REACH
[2024-10-02 19:27] VITALS: BP 131/79
[2024-10-02 19:27] LABS: ANTI-NUCLEAR AB ANA,IGG ELISA None Detected (None Detected)
[2024-10-02 22:14] LABS: Vancomycin, Trough 19.3 ug/mL (5.0-10.0)
[2024-10-02 22:23] LABS: MYELOPEROXIDASE (MPO) AB,IGG 0 AU/mL (0-19); SERINE PROTEINASE 3 PR3 AB,IGG 1 AU/mL (0-19)
[2024-10-02] MEDS ORDERED: Vancomycin HCL 1,500 MG in NS 250 ML IV SCH (23:03)
[2024-10-03 04:02] VITALS: BP 139/80
--- NOTE | 2024-10-03 04:05 | NUR ---
SHIFT SUMMARY PATIENT HAD NO ACUTE CHANGES. ALERT, ORIENTED, AND SBA W/FWW TO BR. PIV INTACT. IV ABXS INFUSED. CBG 135. DENIES CHEST PAIN, SOB, AND N/V. VSS/AFEBRILE. REPORTED RIGHT LEG PAIN X ONE AND OXYCODONE 5MG GIVEN PER EMAR. DRESSING CHANGE TO RIGHT LOWER EXTREMETY. SLEPT SECOND HALF PF SHIFT. ANXIOUS FIRST PART. CALL LIGHT IN REACH. BED IN LOWEST POSITION. WILL CONTINUE TO MONITOR UNTIL DAY SHIFT NURSE ASSUMES CARE.
[2024-10-03] MEDS ORDERED: Clindamycin 600mg in D5W 50 ML IV SCH (08:07)
[2024-10-03 08:53] VITALS: BP 148/80
[2024-10-03 09:34] LABS: BASOPHILS ABSOLUTE AUTO 0.03 K/mm3 (0.00-0.23); BASOPHILS PERCENT AUTO 0 % (0-2); EOSINOPHILS ABSOLUTE AUTO 0.07 K/mm3 (0.00-0.68); EOSINOPHILS PERCENT AUTO 1 % (0-6); Hematocrit 34.9 % (33.0-51.0); Hemoglobin 10.9 g/dL (11.5-16.0); IMMATURE GRAN ABSOLUTE AUTO 0.05 K/mm3 (0.00-0.10); IMMATURE GRAN PERCENT AUTO 1 % (0-1); LYMPHOCYTES ABSOLUTE AUTO 1.63 K/mm3 (0.84-5.20); LYMPHOCYTES PERCENT AUTO 21 % (21-46); MONOCYTES ABSOLUTE AUTO 0.39 K/mm3 (0.16-1.47); MONOCYTES PERCENT AUTO 5 % (4-13); Mean Corpuscular HGB 27.9 pg (26.0-34.0); Mean Corpuscular HGB Conc 31.2 g/dL (31.5-36.5); Mean Corpuscular Volume 89 fL (80-100); Mean Platelet Volume 8.7 fL (9.1-12.4); NEUTROPHILS ABSOLUTE AUTO 5.62 K/mm3 (1.96-9.15); NEUTROPHILS PERCENT AUTO 72 % (41-73); Platelet Count 325 K/mm3 (150-400); RDW Coefficient Variation 15.4 % (11.7-14.2); Red Blood Cell Count 3.91 M/mm3 (3.80-5.20); White Blood Cell Count 7.79 K/mm3 (4.00-11.30)
[2024-10-03 09:53] LABS: Bun/Creatinine Ratio 33.6 (12.0-20.0); Calcium, Blood 8.8 mg/dL (8.5-10.1); Creatinine, Blood 1.25 mg/dL (0.40-1.00); Potassium, Blood 4.3 mmol/L (3.5-5.5)
[2024-10-03 11:16] LABS: ALBUMIN 3.29 g/dL (3.75-5.01); ALPHA 1 GLOBULIN 0.47 g/dL (0.19-0.46); ALPHA 2 GLOBULIN 0.84 g/dL (0.48-1.05); BETA GLOBULIN 0.87 g/dL (0.48-1.10); GAMMA 0.82 g/dL (0.62-1.51); IMMUNOFIXATION REFLEX Not Done; TOTAL PROTEIN,SERUM 6.3 g/dL (6.3-8.2)
[2024-10-03] MEDS ORDERED: Cefepime HCl 2,000 MG in NS 100 ML IV SCH (16:00)
[2024-10-03 16:14] VITALS: BP 121/61
--- NOTE | 2024-10-03 19:23 | NUR ---
NO CHANGES TODAY, MEDICATED FOR PAIN X2, DRESSING CHANGED ONCE, STAND BY ASSIST TO BATHROOM, PATIENT WEARING DEPENDS NOW, BS WNL, CALL LIGHT WITH IN REACH, WILL RELAY TO PM JENNYFER
[2024-10-03 19:29] VITALS: BP 134/82
[2024-10-04 03:46] VITALS: BP 109/46
--- NOTE | 2024-10-04 04:04 | NUR ---
SHIFT SUMMARY PATIENT HAD NO ACUTE CHANGES. ALERT, ORIENTED, AND SBA W/FWW TO BR. PIV INTACT. IV ABXS INFUSED. REPORTED RIGHT LEG PAIN AND OXYCODONE 5 MG GIVEN PER EMAR. CBG 132. DENIES CHEST PAIN, SOB, AND N/V. VSS/AFEBRILE. SLEPT MOST OF THE SHIFT. CALL LIGHT IN REACH. BED IN LOWEST POSITION. WILL CONTINUE TO MONITOR UNTIL DAY SHIFT NURSE ASSUMES CARE.
[2024-10-04 05:37] LABS: BASOPHILS ABSOLUTE AUTO 0.03 K/mm3 (0.00-0.23); BASOPHILS PERCENT AUTO 1 % (0-2); EOSINOPHILS ABSOLUTE AUTO 0.14 K/mm3 (0.00-0.68); EOSINOPHILS PERCENT AUTO 2 % (0-6); Hematocrit 34.5 % (33.0-51.0); Hemoglobin 10.6 g/dL (11.5-16.0); IMMATURE GRAN ABSOLUTE AUTO 0.04 K/mm3 (0.00-0.10); IMMATURE GRAN PERCENT AUTO 1 % (0-1); LYMPHOCYTES ABSOLUTE AUTO 1.38 K/mm3 (0.84-5.20); LYMPHOCYTES PERCENT AUTO 23 % (21-46); MONOCYTES ABSOLUTE AUTO 0.51 K/mm3 (0.16-1.47); MONOCYTES PERCENT AUTO 8 % (4-13); Mean Corpuscular HGB 27.7 pg (26.0-34.0); Mean Corpuscular HGB Conc 30.7 g/dL (31.5-36.5); Mean Corpuscular Volume 90 fL (80-100); Mean Platelet Volume 8.9 fL (9.1-12.4); NEUTROPHILS ABSOLUTE AUTO 4.02 K/mm3 (1.96-9.15); NEUTROPHILS PERCENT AUTO 66 % (41-73); Platelet Count 270 K/mm3 (150-400); RDW Coefficient Variation 15.5 % (11.7-14.2); Red Blood Cell Count 3.82 M/mm3 (3.80-5.20); White Blood Cell Count 6.12 K/mm3 (4.00-11.30)
[2024-10-04 06:07] LABS: Bun/Creatinine Ratio 34.9 (12.0-20.0); Calcium, Blood 8.2 mg/dL (8.5-10.1); Creatinine, Blood 1.26 mg/dL (0.40-1.00); Potassium, Blood 4.7 mmol/L (3.5-5.5)
[2024-10-04 07:44] VITALS: BP 148/96
[2024-10-04 16:28] VITALS: BP 142/79
[2024-10-04 19:48] VITALS: BP 154/81
--- NOTE | 2024-10-04 20:26 | NUR ---
SHIFT SUMMARY PT CONT LEVEL OF CARE. PT NOTED TO BE A SBA WITH AMBULATION. DSG CHANGED AND CDI. DR LAKE WITH DERMATOLOGY CAME IN AND SEEN PT THIS SHIFT AND DISCUSSED SWITHICH PT TO ORAL ABT. DR KRAUSE ALSO WAS IN AND SEEN PT. PT MAY POSSIBLE DC HOME AND TO FOLLOW UP WITH OUTPATIENT WOUND CARE. PT MEDICATED PER EMAR FOR C/O PAIN THIS SHIFT. GYNOCOLOGY CALLED AND ORDER A PELVIC ULTRASOUND ON PT PT IS PLANNING ON HAVING A HISTORECTOMY DONE AN OUTPATIENT PROCEDURE. PT DENIES VAGINAL BLEEDING AT THIS TIME AND AWAITING RESULTS OF ULTRASOUND.
[2024-10-05 04:14] VITALS: BP 132/67
--- NOTE | 2024-10-05 05:09 | NUR ---
SUMMARY: PT A/OX4, CALLS APPROPRIATELY TO SPECIFY NEEDS AND IS PLEASANT AND COOPERATIVE W/CARE. SHE'S AWARE OF LIMITATIONS AND SBA W/FWW OOB TO TOILET. MEPILEX IS INTACT TO L.ZAVALA AND R.ANKLE DX REMAINS C/D/I. IV ABX RECEIVED PER EMAR AND PT WAS MEDICATED W/PRN OXYCODONE FOR TOLERABLE RELIEF OF BACK AND RLE PAIN. BLE'S ARE EDEMATUS, RED AND WARM TO TOUCH THOUGH RLE>LLE. PLAN IS FOR POSS.SWITCH TO PO ABX THEN D/C W/OUTPATIENT WOUND CARE AND F/U PER AND . PT DENIED VAGINAL BLEEDING THIS SHIFT BUT CHANGES OWN PADS PRN AND WILL HAVE HYSTERECTOMY OUTPATIENT WELL. NO ACUTE CHANGES, VSS/AFEBRILE. SHE WEARS 2L O2 VIA NC PRN W/SPO2 WNL. WCTM AND REPORT TO DAY RN.
[2024-10-05 05:11] LABS: BASOPHILS ABSOLUTE AUTO 0.02 K/mm3 (0.00-0.23); BASOPHILS PERCENT AUTO 0 % (0-2); EOSINOPHILS ABSOLUTE AUTO 0.18 K/mm3 (0.00-0.68); EOSINOPHILS PERCENT AUTO 3 % (0-6); Hemoglobin 10.6 g/dL (11.5-16.0); IMMATURE GRAN ABSOLUTE AUTO 0.05 K/mm3 (0.00-0.10); IMMATURE GRAN PERCENT AUTO 1 % (0-1); LYMPHOCYTES ABSOLUTE AUTO 1.58 K/mm3 (0.84-5.20); LYMPHOCYTES PERCENT AUTO 28 % (21-46); MONOCYTES ABSOLUTE AUTO 0.44 K/mm3 (0.16-1.47); MONOCYTES PERCENT AUTO 8 % (4-13); Mean Corpuscular HGB 27.8 pg (26.0-34.0); Mean Corpuscular HGB Conc 31.2 g/dL (31.5-36.5); Mean Corpuscular Volume 89 fL (80-100); Mean Platelet Volume 9.1 fL (9.1-12.4); NEUTROPHILS ABSOLUTE AUTO 3.41 K/mm3 (1.96-9.15); NEUTROPHILS PERCENT AUTO 60 % (41-73); Platelet Count 261 K/mm3 (150-400); RDW Coefficient Variation 15.4 % (11.7-14.2); RDW Standard Deviation 49.9 fL (35.1-46.3); Red Blood Cell Count 3.81 M/mm3 (3.80-5.20); White Blood Cell Count 5.68 K/mm3 (4.00-11.30)
[2024-10-05 05:42] LABS: Bun/Creatinine Ratio 31.7 (12.0-20.0); Calcium, Blood 8.7 mg/dL (8.5-10.1); Creatinine, Blood 1.2 mg/dL (0.40-1.00); Potassium, Blood 4.7 mmol/L (3.5-5.5)
[2024-10-05 08:03] VITALS: BP 129/63
--- NOTE | 2024-10-05 12:17 | NUR ---
"Spiritual Care Visit | Pt. Request Pt. is awake in bed and welcomed my visit. Pt. is pleasant but is guarded in her responses. Through theraputic listening and a calming presence a measure of rapport is established. Occasional moments of confusion are displayed. Pt. welcomed prayer. Prayed with Pt. Pt. verbalized gratitude for the spirtual care visit."
[2024-10-05] MEDS ORDERED: ACET325 PO ×2 (12:27)
[2024-10-05] MEDS ORDERED: MICONAZOLE NITR85 GM TOP ×2 (12:29)
[2024-10-05] MEDS ORDERED: CEFP200 PO ×2 (12:30)
[2024-10-05] MEDS ORDERED: VISBIOME 112.51 EACH PO ×2 (12:30)
[2024-10-05] MEDS ORDERED: DOXY100 PO ×2 (12:31)
--- NOTE | 2024-10-05 13:57 | NUR ---
WOUND CARE COMPLETED TO POSTERIOR RIGHT ANKLE PER WOUND CARE ORDERS. CLEASED LEFT ANKLE WOUND AND REPLACED MEPILEX.
--- NOTE | 2024-10-05 16:43 | NUR ---
DISCHARGE NOTE PATIENT EDUCATED ON DISCHARGE PACKET/INSTRUCITONS. CLARIFIED WITH CASE MANAGEMENT AND HOSPITALIST WHETHER PATIENT IS TO FOLLOW UP AT OUR WOUND CARE CLINIC OR AT HER DERM CLINIC. PATIENT HAD OPTED FOR DERM CLINIC, NUMBER PROVIDED FOR [facility] TO CALL TO SET UP HER APPT. AND DERM CLINIC AWARE PATIENT IS DISCHARGING TODAY. WOUND CARE COMPLETED PER ORDERS TODAY 10/05. PATIENT WAS OFFERED A SHOWER PRIOR TO CHANGING THEM BUT SHE DENIED. IV REMOVED. ESCORTED DOWNSTIARS VIA WHEELCHAIR BY SPOOL FIXER AND FAMILY PICKED UP. BELONGINGS GATHERED AND SENT WITH PATIENT. NO NEW QUESTIONS OR CONCERNS PRIOR TO D/C.
== END 2024-10-05 16:41 | disposition home or self-care (01) | DRG 638 ==
LOC: ER 16:35 → ERHOLD 16:36 → MEDS 09-30 07:39 → ENPENDDIS 10-05 12:42 → MEDS 10-05 16:41
PROVIDERS: Dermatology; Family Medicine; Physician Assistant; Registered Nurse; ADMIT Student in an Organized Health Care Education/Training Program
DX: E11.621 Type 2 diabetes mellitus with foot ulcer (principal); L03.115 Cellulitis of right lower limb; L97.312 Non-pressure chronic ulcer of right ankle with fat layer exposed; L03.116 Cellulitis of left lower limb; L97.412 Non-pressure chronic ulcer of right heel and midfoot with fat layer exposed; L97.919 Non-pressure chronic ulcer of unspecified part of right lower leg with unspecified severity; M86.9 Osteomyelitis, unspecified; F32.A Depression, unspecified; J44.9 Chronic obstructive pulmonary disease, unspecified; Z96.642 Presence of left artificial hip joint; Z96.641 Presence of right artificial hip joint; I12.9 Hypertensive chronic kidney disease with stage 1 through stage 4 chronic kidney disease, or unspecified chronic kidney disease; N18.32 Chronic kidney disease, stage 3b; E66.9 Obesity, unspecified; L89.512 Pressure ulcer of right ankle, stage 2; F41.9 Anxiety disorder, unspecified; D63.1 Anemia in chronic kidney disease; E11.22 Type 2 diabetes mellitus with diabetic chronic kidney disease; B95.4 Other streptococcus as the cause of diseases classified elsewhere; B96.89 Other specified bacterial agents as the cause of diseases classified elsewhere; Z79.899 Other long term (current) drug therapy; Z79.891 Long term (current) use of opiate analgesic; Z86.14 Personal history of Methicillin resistant Staphylococcus aureus infection; Z79.2 Long term (current) use of antibiotics; Z98.890 Other specified postprocedural states; Z87.59 Personal history of other complications of pregnancy, childbirth and the puerperium; Z98.51 Tubal ligation status; Z90.49 Acquired absence of other specified parts of digestive tract; Z87.19 Personal history of other diseases of the digestive system; Z87.442 Personal history of urinary calculi; Z68.39 Body mass index [BMI] 39.0-39.9, adult; Z79.811 Long term (current) use of aromatase inhibitors; Z79.51 Long term (current) use of inhaled steroids; I70.221 Atherosclerosis of native arteries of extremities with rest pain, right leg; R60.9 Edema, unspecified; L08.0 Pyoderma; D48.5 Neoplasm of uncertain behavior of skin; L08.9 Local infection of the skin and subcutaneous tissue, unspecified; L98.9 Disorder of the skin and subcutaneous tissue, unspecified
CPT/HCPCS: 36415; 73610; 73706; 76830; 76856; 80048; 80053; 80202; 82784; 82947; 83036; 83516; 83521; 83605; 83735; 84155; 84165; 85025; 86038; 86334; 87070; 87071; 87075; 87076; 87185; 87205; 94640; 94664; 94760; 97110; 97161; 99284-25; A9270; G0378; J0692; J0696; J1650; J2919; J3370; J7040; J7050; Q9967

== ENCOUNTER → 2024-09-29 | Outpatient (CLI) | payer OTHER ==
[~2024-09-29] MED LIST changes: +ACET325 PO; +ALBU2.5V5 INH; +CEFP200 PO; +DOXY100 PO; +FURO40 PO; +INCRUSE ELLIPTA INH; +MICONAZOLE NITR85 GM TOP; +SERT25 PO; +VISBIOME 112.51 EACH PO
== END ==
LOC: LAB SHORT 14:22 → LAB 14:22
DX: L08.0 Pyoderma (principal); D48.5 Neoplasm of uncertain behavior of skin; L08.9 Local infection of the skin and subcutaneous tissue, unspecified; L98.9 Disorder of the skin and subcutaneous tissue, unspecified
CPT/HCPCS: 87070; 87071; 87075; 87076; 87102; 87116; 87185; 87205

== ENCOUNTER 2024-10-08 05:13 | Day surgery (SDC) | payer OTHER ==
[~2024-10-08 05:13] MED LIST changes: +ACET325 PO; +CEFP200 PO; +DOXY100 PO; +MICONAZOLE NITR85 GM TOP; +VISBIOME 112.51 EACH PO
[2024-10-08] MEDS ORDERED: Lidocaine HCl 4% Cream 5 GM ONE (10:31)
== END 2024-10-08 23:00 | disposition home or self-care (01) ==
LOC: WOUND 05:13
DX: E11.622 Type 2 diabetes mellitus with other skin ulcer (principal); L97.822 Non-pressure chronic ulcer of other part of left lower leg with fat layer exposed; L89.614 Pressure ulcer of right heel, stage 4; E78.5 Hyperlipidemia, unspecified; E11.22 Type 2 diabetes mellitus with diabetic chronic kidney disease; E11.40 Type 2 diabetes mellitus with diabetic neuropathy, unspecified; L97.512 Non-pressure chronic ulcer of other part of right foot with fat layer exposed; I87.2 Venous insufficiency (chronic) (peripheral)
CPT/HCPCS: A9270; G0463

== ENCOUNTER 2024-10-15 04:08 | Day surgery (SDC) | payer OTHER ==
[2024-10-15] MEDS ORDERED: Lidocaine HCl 4% Cream 5 GM ONE (08:27)
== END 2024-10-15 23:00 | disposition home or self-care (01) ==
LOC: WOUND 04:08
DX: E11.621 Type 2 diabetes mellitus with foot ulcer (principal); L97.415 Non-pressure chronic ulcer of right heel and midfoot with muscle involvement without evidence of necrosis; E11.622 Type 2 diabetes mellitus with other skin ulcer; L97.822 Non-pressure chronic ulcer of other part of left lower leg with fat layer exposed; I87.2 Venous insufficiency (chronic) (peripheral); I12.9 Hypertensive chronic kidney disease with stage 1 through stage 4 chronic kidney disease, or unspecified chronic kidney disease; N18.9 Chronic kidney disease, unspecified; E78.5 Hyperlipidemia, unspecified; M79.7 Fibromyalgia
CPT/HCPCS: A9270

== ENCOUNTER 2024-10-20 08:59 | Day surgery (SDC) | payer OTHER ==
[2024-10-20] MEDS ORDERED: ALBU2.5V5 INH (10:39)
[2024-10-20] MEDS ORDERED: FURO40 PO (10:41)
[2024-10-20] MEDS ORDERED: INCRUSE ELLIPTA INH (10:43)
[2024-10-20] MEDS ORDERED: SERT25 PO (10:45)
[2024-10-20] MEDS ORDERED: TRAM50 PO (10:45)
== END 2024-10-20 23:52 | disposition home or self-care (01) ==
LOC: HBO 08:59
DX: E11.621 Type 2 diabetes mellitus with foot ulcer (principal); L97.412 Non-pressure chronic ulcer of right heel and midfoot with fat layer exposed; I87.2 Venous insufficiency (chronic) (peripheral)
CPT/HCPCS: 82947; G0277

== ENCOUNTER 2024-10-21 00:33 | Day surgery (SDC) | payer OTHER ==
[~2024-10-21 00:33] MED LIST changes: +ALBU2.5V5 INH; +FURO40 PO; +INCRUSE ELLIPTA INH; +SERT25 PO
== END 2024-10-21 23:00 | disposition home or self-care (01) ==
LOC: HBO 00:33
DX: E11.622 Type 2 diabetes mellitus with other skin ulcer (principal); L97.813 Non-pressure chronic ulcer of other part of right lower leg with necrosis of muscle; L97.822 Non-pressure chronic ulcer of other part of left lower leg with fat layer exposed; I87.2 Venous insufficiency (chronic) (peripheral); L97.823 Non-pressure chronic ulcer of other part of left lower leg with necrosis of muscle; L97.412 Non-pressure chronic ulcer of right heel and midfoot with fat layer exposed; I70.221 Atherosclerosis of native arteries of extremities with rest pain, right leg; I83.029 Varicose veins of left lower extremity with ulcer of unspecified site; L97.929 Non-pressure chronic ulcer of unspecified part of left lower leg with unspecified severity
CPT/HCPCS: 36415; 80053; 82947; 84155; 84165; 85025; 85520; 85610; 85613; 85730; 86037; 86038; 86039; 86146; 86147; 86430; 86431; G0463

== ENCOUNTER 2024-10-22 03:17 | Day surgery (SDC) | payer OTHER ==
[2024-10-22] MEDS ORDERED: Lidocaine HCl 4% Cream 5 GM ONE (08:08)
== END 2024-10-22 23:00 | disposition home or self-care (01) ==
LOC: WOUND 03:17
DX: E11.622 Type 2 diabetes mellitus with other skin ulcer (principal); L97.813 Non-pressure chronic ulcer of other part of right lower leg with necrosis of muscle; L97.822 Non-pressure chronic ulcer of other part of left lower leg with fat layer exposed; I87.2 Venous insufficiency (chronic) (peripheral)
CPT/HCPCS: A9270; G0463

== ENCOUNTER 2024-10-22 03:36 | Day surgery (SDC) | payer OTHER | END 2024-10-22 23:00 | disposition home or self-care (01) | LOC: HBO 03:36 | DX: E11.621 Type 2 diabetes mellitus with foot ulcer (principal); L97.419 Non-pressure chronic ulcer of right heel and midfoot with unspecified severity; I87.2 Venous insufficiency (chronic) (peripheral); E11.622 Type 2 diabetes mellitus with other skin ulcer; L97.813 Non-pressure chronic ulcer of other part of right lower leg with necrosis of muscle; L97.822 Non-pressure chronic ulcer of other part of left lower leg with fat layer exposed | CPT/HCPCS: 82947; A9270; G0277; G0463 ==

== ENCOUNTER 2024-10-25 02:36 | Day surgery (SDC) | payer OTHER | END 2024-10-25 22:44 | disposition home or self-care (01) | LOC: HBO 02:36 | DX: E11.621 Type 2 diabetes mellitus with foot ulcer (principal); L97.412 Non-pressure chronic ulcer of right heel and midfoot with fat layer exposed; I87.2 Venous insufficiency (chronic) (peripheral); I70.221 Atherosclerosis of native arteries of extremities with rest pain, right leg; I83.029 Varicose veins of left lower extremity with ulcer of unspecified site | CPT/HCPCS: 36415; 82947; 86146; 86200; G0277 ==

== ENCOUNTER 2024-10-26 02:55 | Day surgery (SDC) | payer OTHER | END 2024-10-26 22:53 | disposition home or self-care (01) | LOC: HBO 02:55 | DX: E11.622 Type 2 diabetes mellitus with other skin ulcer (principal); L97.813 Non-pressure chronic ulcer of other part of right lower leg with necrosis of muscle; L97.822 Non-pressure chronic ulcer of other part of left lower leg with fat layer exposed; I87.2 Venous insufficiency (chronic) (peripheral) | CPT/HCPCS: 82947; G0277 ==

== ENCOUNTER 2024-10-27 01:39 | Day surgery (SDC) | payer OTHER | END 2024-10-27 23:00 | disposition home or self-care (01) | LOC: HBO 01:39 | DX: E11.622 Type 2 diabetes mellitus with other skin ulcer (principal); L97.813 Non-pressure chronic ulcer of other part of right lower leg with necrosis of muscle; L97.822 Non-pressure chronic ulcer of other part of left lower leg with fat layer exposed; I87.2 Venous insufficiency (chronic) (peripheral) | CPT/HCPCS: 82947; G0277 ==

== ENCOUNTER 2024-10-28 03:58 | Day surgery (SDC) | payer OTHER | END 2024-10-28 23:00 | disposition home or self-care (01) | LOC: HBO 03:58 | DX: E11.622 Type 2 diabetes mellitus with other skin ulcer (principal); L97.813 Non-pressure chronic ulcer of other part of right lower leg with necrosis of muscle; L97.822 Non-pressure chronic ulcer of other part of left lower leg with fat layer exposed; I87.2 Venous insufficiency (chronic) (peripheral) | CPT/HCPCS: 82947; G0277 ==

== ENCOUNTER 2024-10-29 03:47 | Day surgery (SDC) | payer OTHER | END 2024-10-29 23:00 | disposition home or self-care (01) | LOC: HBO 03:47 | DX: E11.622 Type 2 diabetes mellitus with other skin ulcer (principal); L97.813 Non-pressure chronic ulcer of other part of right lower leg with necrosis of muscle; L97.822 Non-pressure chronic ulcer of other part of left lower leg with fat layer exposed; I87.2 Venous insufficiency (chronic) (peripheral) | CPT/HCPCS: 82947; G0277 ==

== ENCOUNTER 2024-11-01 00:25 | Day surgery (SDC) | payer OTHER | END 2024-11-01 23:00 | disposition home or self-care (01) | LOC: HBO 00:25 | DX: E11.622 Type 2 diabetes mellitus with other skin ulcer (principal); L97.813 Non-pressure chronic ulcer of other part of right lower leg with necrosis of muscle; L97.822 Non-pressure chronic ulcer of other part of left lower leg with fat layer exposed; I87.2 Venous insufficiency (chronic) (peripheral) | CPT/HCPCS: 82947; G0277 ==

== ENCOUNTER 2024-11-02 03:57 | Day surgery (SDC) | payer OTHER ==
[2024-11-02] MEDS ORDERED: Lidocaine HCl 4% Cream 5 GM ONE (10:33)
== END 2024-11-02 23:00 | disposition home or self-care (01) ==
LOC: WOUND 03:57
DX: E11.621 Type 2 diabetes mellitus with foot ulcer (principal); L97.415 Non-pressure chronic ulcer of right heel and midfoot with muscle involvement without evidence of necrosis; E11.622 Type 2 diabetes mellitus with other skin ulcer; L97.822 Non-pressure chronic ulcer of other part of left lower leg with fat layer exposed; I87.2 Venous insufficiency (chronic) (peripheral); E11.40 Type 2 diabetes mellitus with diabetic neuropathy, unspecified; I12.9 Hypertensive chronic kidney disease with stage 1 through stage 4 chronic kidney disease, or unspecified chronic kidney disease; E11.22 Type 2 diabetes mellitus with diabetic chronic kidney disease; N18.9 Chronic kidney disease, unspecified; E78.5 Hyperlipidemia, unspecified; M79.7 Fibromyalgia
CPT/HCPCS: A9270; G0463

== ENCOUNTER 2024-11-02 08:00 | Day surgery (SDC) | payer OTHER | END 2024-11-02 23:00 | disposition home or self-care (01) | LOC: HBO 08:00 | DX: E11.622 Type 2 diabetes mellitus with other skin ulcer (principal); L97.813 Non-pressure chronic ulcer of other part of right lower leg with necrosis of muscle; L97.822 Non-pressure chronic ulcer of other part of left lower leg with fat layer exposed; I87.2 Venous insufficiency (chronic) (peripheral) | CPT/HCPCS: 82947; G0277 ==

== ENCOUNTER 2024-11-03 01:30 | Day surgery (SDC) | payer OTHER | END 2024-11-03 23:00 | disposition home or self-care (01) | LOC: HBO 01:30 | DX: E11.621 Type 2 diabetes mellitus with foot ulcer (principal); L97.412 Non-pressure chronic ulcer of right heel and midfoot with fat layer exposed; I87.2 Venous insufficiency (chronic) (peripheral) | CPT/HCPCS: 82947; G0277 ==

== ENCOUNTER 2024-11-04 00:07 | Day surgery (SDC) | payer OTHER | END 2024-11-04 23:00 | disposition home or self-care (01) | LOC: HBO 00:07 | DX: E11.622 Type 2 diabetes mellitus with other skin ulcer (principal); L97.813 Non-pressure chronic ulcer of other part of right lower leg with necrosis of muscle; L97.822 Non-pressure chronic ulcer of other part of left lower leg with fat layer exposed; I87.2 Venous insufficiency (chronic) (peripheral) | CPT/HCPCS: 82947; G0277 ==

== ENCOUNTER 2024-11-05 00:26 | Day surgery (SDC) | payer OTHER | END 2024-11-05 23:00 | disposition home or self-care (01) | LOC: HBO 00:26 | DX: E11.621 Type 2 diabetes mellitus with foot ulcer (principal); L97.412 Non-pressure chronic ulcer of right heel and midfoot with fat layer exposed; I87.2 Venous insufficiency (chronic) (peripheral) | CPT/HCPCS: 82947; G0277 ==

== ENCOUNTER 2024-11-08 01:12 | Day surgery (SDC) | payer OTHER | END 2024-11-08 23:00 | disposition home or self-care (01) | LOC: HBO 01:12 | DX: E11.621 Type 2 diabetes mellitus with foot ulcer (principal); L97.419 Non-pressure chronic ulcer of right heel and midfoot with unspecified severity; E11.622 Type 2 diabetes mellitus with other skin ulcer; L97.813 Non-pressure chronic ulcer of other part of right lower leg with necrosis of muscle; L97.822 Non-pressure chronic ulcer of other part of left lower leg with fat layer exposed; I87.2 Venous insufficiency (chronic) (peripheral) | CPT/HCPCS: 82947; G0277 ==

== ENCOUNTER 2024-11-09 02:25 | Day surgery (SDC) | payer OTHER ==
[~2024-11-09 02:25] MED LIST changes: -Lidocaine HCl 4% Cream 5 GM ONE; -Silver Nitr/Potassium Nitrate 1 EA APPL ONE
== END 2024-11-09 23:00 | disposition home or self-care (01) ==
LOC: HBO 02:25
DX: E11.622 Type 2 diabetes mellitus with other skin ulcer (principal); L97.813 Non-pressure chronic ulcer of other part of right lower leg with necrosis of muscle; L97.822 Non-pressure chronic ulcer of other part of left lower leg with fat layer exposed; I87.2 Venous insufficiency (chronic) (peripheral); E11.621 Type 2 diabetes mellitus with foot ulcer; L97.413 Non-pressure chronic ulcer of right heel and midfoot with necrosis of muscle
CPT/HCPCS: 82947; A9270; G0277

== ENCOUNTER → 2024-11-09 | Day surgery (SDC) | payer OTHER ==
[~2024-11-09] MED LIST changes: +Lidocaine HCl 4% Cream 5 GM ONE; +Silver Nitr/Potassium Nitrate 1 EA APPL ONE
== END ==
LOC: WOUND 02:35
DX: E11.622 Type 2 diabetes mellitus with other skin ulcer (principal); L97.822 Non-pressure chronic ulcer of other part of left lower leg with fat layer exposed; L97.813 Non-pressure chronic ulcer of other part of right lower leg with necrosis of muscle; E11.621 Type 2 diabetes mellitus with foot ulcer; L97.413 Non-pressure chronic ulcer of right heel and midfoot with necrosis of muscle; I87.2 Venous insufficiency (chronic) (peripheral)
CPT/HCPCS: A9270

== ENCOUNTER 2024-11-11 04:09 | Day surgery (SDC) | payer OTHER | END 2024-11-11 23:00 | disposition home or self-care (01) | LOC: HBO 04:09 | DX: E11.622 Type 2 diabetes mellitus with other skin ulcer (principal); L97.813 Non-pressure chronic ulcer of other part of right lower leg with necrosis of muscle; L97.822 Non-pressure chronic ulcer of other part of left lower leg with fat layer exposed; I87.2 Venous insufficiency (chronic) (peripheral) | CPT/HCPCS: 82947; G0277 ==

== ENCOUNTER 2024-11-12 03:22 | Day surgery (SDC) | payer OTHER | END 2024-11-12 23:00 | disposition home or self-care (01) | LOC: HBO 03:22 | DX: E11.622 Type 2 diabetes mellitus with other skin ulcer (principal); L97.813 Non-pressure chronic ulcer of other part of right lower leg with necrosis of muscle; E11.621 Type 2 diabetes mellitus with foot ulcer; L97.412 Non-pressure chronic ulcer of right heel and midfoot with fat layer exposed; L97.822 Non-pressure chronic ulcer of other part of left lower leg with fat layer exposed; I87.2 Venous insufficiency (chronic) (peripheral) | CPT/HCPCS: 82947; G0277 ==

== ENCOUNTER 2024-11-15 01:34 | Day surgery (SDC) | payer OTHER | END 2024-11-15 23:00 | disposition home or self-care (01) | LOC: HBO 01:34 | DX: E11.622 Type 2 diabetes mellitus with other skin ulcer (principal); L97.813 Non-pressure chronic ulcer of other part of right lower leg with necrosis of muscle; L97.822 Non-pressure chronic ulcer of other part of left lower leg with fat layer exposed; I87.2 Venous insufficiency (chronic) (peripheral) | CPT/HCPCS: 82947; G0277 ==

== ENCOUNTER 2024-11-16 04:15 | Day surgery (SDC) | payer OTHER | END 2024-11-16 22:36 | disposition home or self-care (01) | LOC: HBO 04:15 | DX: E11.622 Type 2 diabetes mellitus with other skin ulcer (principal); L97.813 Non-pressure chronic ulcer of other part of right lower leg with necrosis of muscle; L97.822 Non-pressure chronic ulcer of other part of left lower leg with fat layer exposed; I87.2 Venous insufficiency (chronic) (peripheral); I12.9 Hypertensive chronic kidney disease with stage 1 through stage 4 chronic kidney disease, or unspecified chronic kidney disease; E11.22 Type 2 diabetes mellitus with diabetic chronic kidney disease; N18.9 Chronic kidney disease, unspecified; E78.5 Hyperlipidemia, unspecified | CPT/HCPCS: 82947; A9270; G0277 ==

== ENCOUNTER 2024-11-17 01:48 | Day surgery (SDC) | payer OTHER | END 2024-11-17 23:00 | disposition home or self-care (01) | LOC: HBO 01:48 | DX: E11.622 Type 2 diabetes mellitus with other skin ulcer (principal); L97.813 Non-pressure chronic ulcer of other part of right lower leg with necrosis of muscle; L97.822 Non-pressure chronic ulcer of other part of left lower leg with fat layer exposed; I87.2 Venous insufficiency (chronic) (peripheral) | CPT/HCPCS: 82947; G0277 ==

== ENCOUNTER 2024-11-19 02:35 | Day surgery (SDC) | payer OTHER | END 2024-11-19 23:00 | disposition home or self-care (01) | LOC: HBO 02:35 | DX: E11.622 Type 2 diabetes mellitus with other skin ulcer (principal); L97.813 Non-pressure chronic ulcer of other part of right lower leg with necrosis of muscle; L97.822 Non-pressure chronic ulcer of other part of left lower leg with fat layer exposed; I87.2 Venous insufficiency (chronic) (peripheral) | CPT/HCPCS: 82947; 93971; G0277 ==

== ENCOUNTER 2024-11-22 12:22 | Day surgery (SDC) | payer OTHER | END 2024-11-22 23:00 | disposition home or self-care (01) | LOC: HBO 12:22 | DX: E11.622 Type 2 diabetes mellitus with other skin ulcer (principal); L97.813 Non-pressure chronic ulcer of other part of right lower leg with necrosis of muscle; L97.822 Non-pressure chronic ulcer of other part of left lower leg with fat layer exposed; I87.2 Venous insufficiency (chronic) (peripheral) | CPT/HCPCS: 82947; G0277 ==

== ENCOUNTER 2024-11-23 04:33 | Day surgery (SDC) | payer OTHER | END 2024-11-23 23:00 | disposition home or self-care (01) | LOC: HBO 04:33 | DX: E11.622 Type 2 diabetes mellitus with other skin ulcer (principal); L97.813 Non-pressure chronic ulcer of other part of right lower leg with necrosis of muscle; L97.822 Non-pressure chronic ulcer of other part of left lower leg with fat layer exposed; I87.2 Venous insufficiency (chronic) (peripheral) | CPT/HCPCS: 82947; G0277 ==

== ENCOUNTER 2024-11-23 04:41 | Day surgery (SDC) | payer OTHER ==
[2024-11-23] MEDS ORDERED: Lidocaine HCl 4% Cream 5 GM ONE (10:22)
[2024-11-23] MEDS ORDERED: Silver Nitr/Potassium Nitrate 1 EA APPL ONE (10:45)
== END 2024-11-23 23:00 | disposition home or self-care (01) ==
LOC: WOUND 04:41
DX: L97.822 Non-pressure chronic ulcer of other part of left lower leg with fat layer exposed (principal); E11.621 Type 2 diabetes mellitus with foot ulcer; L97.412 Non-pressure chronic ulcer of right heel and midfoot with fat layer exposed; S81.812A Laceration without foreign body, left lower leg, initial encounter; X58.XXXA Exposure to other specified factors, initial encounter; L97.813 Non-pressure chronic ulcer of other part of right lower leg with necrosis of muscle; I87.2 Venous insufficiency (chronic) (peripheral); I12.9 Hypertensive chronic kidney disease with stage 1 through stage 4 chronic kidney disease, or unspecified chronic kidney disease; N18.9 Chronic kidney disease, unspecified; E78.5 Hyperlipidemia, unspecified; W01.198A Fall on same level from slipping, tripping and stumbling with subsequent striking against other object, initial encounter
CPT/HCPCS: A9270

== ENCOUNTER 2024-11-24 01:06 | Day surgery (SDC) | payer OTHER | END 2024-11-24 23:00 | LOC: HBO 01:06 | DX: E11.622 Type 2 diabetes mellitus with other skin ulcer (principal); L97.822 Non-pressure chronic ulcer of other part of left lower leg with fat layer exposed; L97.813 Non-pressure chronic ulcer of other part of right lower leg with necrosis of muscle; I87.2 Venous insufficiency (chronic) (peripheral); L97.412 Non-pressure chronic ulcer of right heel and midfoot with fat layer exposed; X58.XXXA Exposure to other specified factors, initial encounter; I12.9 Hypertensive chronic kidney disease with stage 1 through stage 4 chronic kidney disease, or unspecified chronic kidney disease; N18.9 Chronic kidney disease, unspecified; E78.5 Hyperlipidemia, unspecified; W01.198A Fall on same level from slipping, tripping and stumbling with subsequent striking against other object, initial encounter | CPT/HCPCS: 82947; A9270; G0277 ==

== ENCOUNTER 2024-11-29 08:15 | Day surgery (SDC) | payer OTHER | END 2024-11-29 23:00 | disposition home or self-care (01) | LOC: HBO 08:15 | DX: E11.622 Type 2 diabetes mellitus with other skin ulcer (principal); L97.822 Non-pressure chronic ulcer of other part of left lower leg with fat layer exposed; L97.813 Non-pressure chronic ulcer of other part of right lower leg with necrosis of muscle; I87.2 Venous insufficiency (chronic) (peripheral) | CPT/HCPCS: 82947; G0463 ==

== ENCOUNTER 2024-11-30 03:42 | Day surgery (SDC) | payer OTHER ==
[2024-11-30] MEDS ORDERED: Lidocaine HCl 4% Cream 5 GM ONE (10:38)
[2024-11-30] MEDS ORDERED: Silver Nitr/Potassium Nitrate 1 EA APPL ONE (11:04)
== END 2024-11-30 23:00 | disposition home or self-care (01) ==
LOC: WOUND 03:42
DX: E11.622 Type 2 diabetes mellitus with other skin ulcer (principal); L97.813 Non-pressure chronic ulcer of other part of right lower leg with necrosis of muscle; L97.822 Non-pressure chronic ulcer of other part of left lower leg with fat layer exposed; I87.2 Venous insufficiency (chronic) (peripheral)
CPT/HCPCS: A9270

== ENCOUNTER 2024-12-06 05:43 | Day surgery (SDC) | payer OTHER | END 2024-12-06 23:00 | disposition home or self-care (01) | LOC: HBO 05:43 | DX: E11.622 Type 2 diabetes mellitus with other skin ulcer (principal); L97.822 Non-pressure chronic ulcer of other part of left lower leg with fat layer exposed; L97.813 Non-pressure chronic ulcer of other part of right lower leg with necrosis of muscle; I87.2 Venous insufficiency (chronic) (peripheral) | CPT/HCPCS: 82947; G0277 ==

== ENCOUNTER 2024-12-07 02:18 | Day surgery (SDC) | payer OTHER | END 2024-12-07 23:31 | disposition home or self-care (01) | LOC: HBO 02:18 | DX: E11.622 Type 2 diabetes mellitus with other skin ulcer (principal); L97.813 Non-pressure chronic ulcer of other part of right lower leg with necrosis of muscle; L97.822 Non-pressure chronic ulcer of other part of left lower leg with fat layer exposed; I87.2 Venous insufficiency (chronic) (peripheral); E11.621 Type 2 diabetes mellitus with foot ulcer; L97.512 Non-pressure chronic ulcer of other part of right foot with fat layer exposed; E11.40 Type 2 diabetes mellitus with diabetic neuropathy, unspecified; M79.7 Fibromyalgia; I12.9 Hypertensive chronic kidney disease with stage 1 through stage 4 chronic kidney disease, or unspecified chronic kidney disease; E11.22 Type 2 diabetes mellitus with diabetic chronic kidney disease; N18.9 Chronic kidney disease, unspecified; E78.5 Hyperlipidemia, unspecified | CPT/HCPCS: 82947; A9270; G0277 ==

== ENCOUNTER 2024-12-07 03:08 | Day surgery (SDC) | payer OTHER ==
[2024-12-07] MEDS ORDERED: Lidocaine HCl 4% Cream 5 GM ONE (10:13)
[2024-12-07] MEDS ORDERED: Silver Nitr/Potassium Nitrate 1 EA APPL ONE (10:24)
== END 2024-12-07 23:32 | disposition home or self-care (01) ==
LOC: WOUND 03:08
DX: E11.621 Type 2 diabetes mellitus with foot ulcer (principal); L97.512 Non-pressure chronic ulcer of other part of right foot with fat layer exposed; I87.2 Venous insufficiency (chronic) (peripheral); E11.40 Type 2 diabetes mellitus with diabetic neuropathy, unspecified; M79.7 Fibromyalgia; I12.9 Hypertensive chronic kidney disease with stage 1 through stage 4 chronic kidney disease, or unspecified chronic kidney disease; E11.22 Type 2 diabetes mellitus with diabetic chronic kidney disease; N18.9 Chronic kidney disease, unspecified; E78.5 Hyperlipidemia, unspecified
CPT/HCPCS: A9270

== ENCOUNTER 2024-12-08 02:13 | Day surgery (SDC) | payer OTHER | END 2024-12-08 23:00 | disposition home or self-care (01) | LOC: HBO 02:13 | DX: E11.622 Type 2 diabetes mellitus with other skin ulcer (principal); L97.822 Non-pressure chronic ulcer of other part of left lower leg with fat layer exposed; L97.813 Non-pressure chronic ulcer of other part of right lower leg with necrosis of muscle; I87.2 Venous insufficiency (chronic) (peripheral) | CPT/HCPCS: 82947; G0277 ==

== ENCOUNTER 2024-12-09 01:09 | Day surgery (SDC) | payer OTHER | END 2024-12-09 23:00 | disposition home or self-care (01) | LOC: HBO 01:09 | DX: E11.622 Type 2 diabetes mellitus with other skin ulcer (principal); L97.813 Non-pressure chronic ulcer of other part of right lower leg with necrosis of muscle; L97.822 Non-pressure chronic ulcer of other part of left lower leg with fat layer exposed; I87.2 Venous insufficiency (chronic) (peripheral) | CPT/HCPCS: 82947; G0277 ==

== ENCOUNTER 2024-12-15 03:03 | Day surgery (SDC) | payer OTHER | END 2024-12-15 23:00 | disposition home or self-care (01) | LOC: HBO 03:03 | DX: E11.622 Type 2 diabetes mellitus with other skin ulcer (principal); L97.813 Non-pressure chronic ulcer of other part of right lower leg with necrosis of muscle; I87.2 Venous insufficiency (chronic) (peripheral) | CPT/HCPCS: 82947; G0277 ==

== ENCOUNTER 2024-12-16 01:54 | Day surgery (SDC) | payer OTHER | END 2024-12-16 23:00 | disposition home or self-care (01) | LOC: HBO 01:54 | DX: E11.622 Type 2 diabetes mellitus with other skin ulcer (principal); L97.813 Non-pressure chronic ulcer of other part of right lower leg with necrosis of muscle; I87.2 Venous insufficiency (chronic) (peripheral); I49.1 Atrial premature depolarization; E11.22 Type 2 diabetes mellitus with diabetic chronic kidney disease; I12.9 Hypertensive chronic kidney disease with stage 1 through stage 4 chronic kidney disease, or unspecified chronic kidney disease; N18.30 Chronic kidney disease, stage 3 unspecified; J44.9 Chronic obstructive pulmonary disease, unspecified; E78.5 Hyperlipidemia, unspecified; Z79.51 Long term (current) use of inhaled steroids; Z79.899 Other long term (current) drug therapy ==

== ENCOUNTER 2024-12-16 08:13 | Emergency (ER) | payer OTHER ==
[~2024-12-16] VITALS: Ht 170.2 cm; Wt 108.9 kg
[2024-12-16 08:40] LABS: BASOPHILS ABSOLUTE AUTO 0.03 K/mm3 (0.00-0.23); BASOPHILS PERCENT AUTO 0 % (0-2); EOSINOPHILS ABSOLUTE AUTO 0.22 K/mm3 (0.00-0.68); EOSINOPHILS PERCENT AUTO 3 % (0-6); Hematocrit 34.9 % (33.0-51.0); Hemoglobin 11.4 g/dL (11.5-16.0); IMMATURE GRAN ABSOLUTE AUTO 0.06 K/mm3 (0.00-0.10); IMMATURE GRAN PERCENT AUTO 1 % (0-1); LYMPHOCYTES ABSOLUTE AUTO 2.24 K/mm3 (0.84-5.20); LYMPHOCYTES PERCENT AUTO 29 % (21-46); MONOCYTES ABSOLUTE AUTO 0.51 K/mm3 (0.16-1.47); MONOCYTES PERCENT AUTO 7 % (4-13); Mean Corpuscular HGB 28.6 pg (26.0-34.0); Mean Corpuscular HGB Conc 32.7 g/dL (31.5-36.5); Mean Corpuscular Volume 88 fL (80-100); Mean Platelet Volume 9.2 fL (9.1-12.4); NEUTROPHILS ABSOLUTE AUTO 4.68 K/mm3 (1.96-9.15); NEUTROPHILS PERCENT AUTO 61 % (41-73); Platelet Count 211 K/mm3 (150-400); RDW Coefficient Variation 16.7 % (11.7-14.2); RDW Standard Deviation 52.7 fL (35.1-46.3); Red Blood Cell Count 3.98 M/mm3 (3.80-5.20); White Blood Cell Count 7.74 K/mm3 (4.00-11.30)
[2024-12-16] MEDS ORDERED: NS 1,000 ML IV SCH (08:45)
[2024-12-16 11:04] LABS: Alanine Aminotransfer (ALT/SGP 33 U/L (12-78); Albumin, Blood 3.4 g/dL (3.4-5.0); Albumin/Globulin Ratio 1.1 (0.8-1.8); Alk Phos 138 U/L (50-136); Anion Gap 15 mmol/L (3-11); Aspartate Aminotrans (AST/SGOT 25 U/L (12-37); Bilirubin, Total 0.4 mg/dL (0.1-1.0); CO2, Blood 23 mmol/L (21-32); Calcium, Blood 9.9 mg/dL (8.5-10.1); Chloride, Blood 105 mmol/L (98-108); Creatinine, Blood 2.44 mg/dL (0.40-1.00); Globulin, Blood 3.2 g/dL (2.2-4.0); Glomerular Filtration Rate 22 (60-); Sodium, Blood 139 mmol/L (136-145); Total Protein, Blood 6.6 g/dL (6.4-8.2)
[2024-12-16 11:10] LABS: Bun/Creatinine Ratio Unable to Calculate (12.0-20.0)
[2024-12-16 11:13] VITALS: BP 116/84
== END 2024-12-16 11:32 | disposition home or self-care (01) ==
LOC: ER 08:13
PROVIDERS: Emergency Medicine
DX: I49.1 Atrial premature depolarization (principal); I12.9 Hypertensive chronic kidney disease with stage 1 through stage 4 chronic kidney disease, or unspecified chronic kidney disease; N18.30 Chronic kidney disease, stage 3 unspecified; J44.9 Chronic obstructive pulmonary disease, unspecified; E78.5 Hyperlipidemia, unspecified; Z79.51 Long term (current) use of inhaled steroids; Z79.899 Other long term (current) drug therapy
CPT/HCPCS: 80053; 84484; 85025; J7030

== ENCOUNTER 2024-12-20 00:57 | Day surgery (SDC) | payer OTHER | END 2024-12-20 23:12 | disposition home or self-care (01) | LOC: HBO 00:57 | DX: E11.622 Type 2 diabetes mellitus with other skin ulcer (principal); L97.813 Non-pressure chronic ulcer of other part of right lower leg with necrosis of muscle; I87.2 Venous insufficiency (chronic) (peripheral) | CPT/HCPCS: 82947; G0277 ==

== ENCOUNTER 2024-12-22 05:27 | Day surgery (SDC) | payer OTHER | END 2024-12-22 23:00 | LOC: HBO 05:27 | DX: E11.622 Type 2 diabetes mellitus with other skin ulcer (principal); L97.813 Non-pressure chronic ulcer of other part of right lower leg with necrosis of muscle; I87.2 Venous insufficiency (chronic) (peripheral) | CPT/HCPCS: 82947; G0277 ==

== ENCOUNTER 2025-01-05 00:18 | Day surgery (SDC) | payer OTHER | END 2025-01-05 23:22 | disposition home or self-care (01) | LOC: HBO 00:18 → WOUND 14:16 → HBO 16:51 | DX: E11.622 Type 2 diabetes mellitus with other skin ulcer (principal); L97.312 Non-pressure chronic ulcer of right ankle with fat layer exposed; I87.2 Venous insufficiency (chronic) (peripheral); N18.30 Chronic kidney disease, stage 3 unspecified; D63.1 Anemia in chronic kidney disease | CPT/HCPCS: 36415; 80069; 82947; 85018; G0277 ==

== ENCOUNTER 2025-01-10 03:15 | Day surgery (SDC) | payer OTHER | END 2025-01-10 23:38 | disposition home or self-care (01) | LOC: HBO | DX: E11.622 Type 2 diabetes mellitus with other skin ulcer (principal); L97.813 Non-pressure chronic ulcer of other part of right lower leg with necrosis of muscle; I87.2 Venous insufficiency (chronic) (peripheral) | CPT/HCPCS: 82947; G0277 ==

== ENCOUNTER 2025-01-20 03:15 | Day surgery (SDC) | payer OTHER | END 2025-01-20 23:00 | disposition home or self-care (01) | LOC: HBO 03:15 | DX: E11.621 Type 2 diabetes mellitus with foot ulcer (principal); L97.412 Non-pressure chronic ulcer of right heel and midfoot with fat layer exposed | CPT/HCPCS: 82947; G0463 ==

== ENCOUNTER 2025-01-25 00:24 | Day surgery (SDC) | payer OTHER | END 2025-01-25 23:00 | disposition home or self-care (01) | LOC: HBO 00:24 | DX: E11.622 Type 2 diabetes mellitus with other skin ulcer (principal); L97.813 Non-pressure chronic ulcer of other part of right lower leg with necrosis of muscle; E11.621 Type 2 diabetes mellitus with foot ulcer; L97.522 Non-pressure chronic ulcer of other part of left foot with fat layer exposed; I87.2 Venous insufficiency (chronic) (peripheral); L97.815 Non-pressure chronic ulcer of other part of right lower leg with muscle involvement without evidence of necrosis | CPT/HCPCS: 82947; A9270; G0277 ==

== ENCOUNTER 2025-02-07 04:13 | Day surgery (SDC) | payer OTHER | END 2025-02-07 23:00 | disposition home or self-care (01) | LOC: HBO 04:13 | DX: E11.622 Type 2 diabetes mellitus with other skin ulcer (principal); L97.813 Non-pressure chronic ulcer of other part of right lower leg with necrosis of muscle; E11.621 Type 2 diabetes mellitus with foot ulcer; L97.522 Non-pressure chronic ulcer of other part of left foot with fat layer exposed; I87.2 Venous insufficiency (chronic) (peripheral) | CPT/HCPCS: 82947; G0277 ==

== ENCOUNTER 2025-02-08 04:03 | Day surgery (SDC) | payer OTHER | END 2025-02-08 22:00 | disposition home or self-care (01) | LOC: HBO | DX: E11.621 Type 2 diabetes mellitus with foot ulcer (principal); L97.412 Non-pressure chronic ulcer of right heel and midfoot with fat layer exposed; L97.522 Non-pressure chronic ulcer of other part of left foot with fat layer exposed; E11.622 Type 2 diabetes mellitus with other skin ulcer; L97.813 Non-pressure chronic ulcer of other part of right lower leg with necrosis of muscle; I87.2 Venous insufficiency (chronic) (peripheral); J45.40 Moderate persistent asthma, uncomplicated | CPT/HCPCS: 36415; 80069; 82607; 82728; 82746; 82947; 83036; 83540; 83550; 85018; 85025; A9270; G0277 ==

== ENCOUNTER 2025-02-08 04:26 | Day surgery (SDC) | payer OTHER ==
[2025-02-08] MEDS ORDERED: Lidocaine HCl 4% Cream 5 GM ONE (10:54)
== END 2025-02-08 22:00 | disposition home or self-care (01) ==
LOC: WOUND
DX: E11.621 Type 2 diabetes mellitus with foot ulcer (principal); L97.412 Non-pressure chronic ulcer of right heel and midfoot with fat layer exposed; I87.2 Venous insufficiency (chronic) (peripheral)
CPT/HCPCS: A9270

== ENCOUNTER 2025-02-09 01:44 | Day surgery (SDC) | payer OTHER | END 2025-02-09 23:00 | disposition home or self-care (01) | LOC: HBO | DX: E11.621 Type 2 diabetes mellitus with foot ulcer (principal); L97.412 Non-pressure chronic ulcer of right heel and midfoot with fat layer exposed; I87.2 Venous insufficiency (chronic) (peripheral) | CPT/HCPCS: 82947; G0277 ==

== ENCOUNTER 2025-02-10 01:38 | Day surgery (SDC) | payer OTHER | END 2025-02-10 23:00 | disposition home or self-care (01) | LOC: HBO | DX: E11.622 Type 2 diabetes mellitus with other skin ulcer (principal); L97.813 Non-pressure chronic ulcer of other part of right lower leg with necrosis of muscle; I87.2 Venous insufficiency (chronic) (peripheral) | CPT/HCPCS: 82947; G0277 ==

== ENCOUNTER 2025-02-11 01:34 | Day surgery (SDC) | payer OTHER | END 2025-02-11 23:00 | disposition home or self-care (01) | LOC: HBO 01:34 | DX: E11.622 Type 2 diabetes mellitus with other skin ulcer (principal); L97.813 Non-pressure chronic ulcer of other part of right lower leg with necrosis of muscle; I87.2 Venous insufficiency (chronic) (peripheral) | CPT/HCPCS: 82947; G0277 ==

== ENCOUNTER → 2025-02-11 | Outpatient (CLI) | payer OTHER | END | disposition home or self-care (01) | LOC: LAB 12:34 → LAB SHORT 12:34 | DX: L23.7 Allergic contact dermatitis due to plants, except food (principal); M79.671 Pain in right foot | CPT/HCPCS: 87070; 87075; 87077; 87147; 87186; 87205 ==

== ENCOUNTER 2025-02-18 05:48 | Day surgery (SDC) | payer OTHER | END 2025-02-18 23:00 | disposition home or self-care (01) | LOC: HBO 05:48 | DX: E11.621 Type 2 diabetes mellitus with foot ulcer (principal); L97.412 Non-pressure chronic ulcer of right heel and midfoot with fat layer exposed; I87.2 Venous insufficiency (chronic) (peripheral); L97.813 Non-pressure chronic ulcer of other part of right lower leg with necrosis of muscle; L97.319 Non-pressure chronic ulcer of right ankle with unspecified severity; E11.40 Type 2 diabetes mellitus with diabetic neuropathy, unspecified; E11.22 Type 2 diabetes mellitus with diabetic chronic kidney disease; I12.9 Hypertensive chronic kidney disease with stage 1 through stage 4 chronic kidney disease, or unspecified chronic kidney disease; N18.9 Chronic kidney disease, unspecified; E78.5 Hyperlipidemia, unspecified; M79.7 Fibromyalgia | CPT/HCPCS: 82947; A9270; G0277; G0463 ==

== ENCOUNTER 2025-02-18 06:14 | Day surgery (SDC) | payer OTHER ==
[2025-02-18] MEDS ORDERED: Lidocaine HCl 4% Cream 5 GM ONE (11:08)
== END 2025-02-18 23:00 | disposition home or self-care (01) ==
LOC: WOUND 06:14
DX: E11.622 Type 2 diabetes mellitus with other skin ulcer (principal); L97.813 Non-pressure chronic ulcer of other part of right lower leg with necrosis of muscle; L97.319 Non-pressure chronic ulcer of right ankle with unspecified severity; L89.613 Pressure ulcer of right heel, stage 3; I87.2 Venous insufficiency (chronic) (peripheral); E11.40 Type 2 diabetes mellitus with diabetic neuropathy, unspecified; E11.22 Type 2 diabetes mellitus with diabetic chronic kidney disease; I12.9 Hypertensive chronic kidney disease with stage 1 through stage 4 chronic kidney disease, or unspecified chronic kidney disease; N18.9 Chronic kidney disease, unspecified; E78.5 Hyperlipidemia, unspecified; M79.7 Fibromyalgia
CPT/HCPCS: A9270; G0463

== ENCOUNTER 2025-02-22 00:35 | Day surgery (SDC) | payer OTHER | END 2025-02-22 22:44 | disposition home or self-care (01) | LOC: HBO 00:35 | DX: E11.622 Type 2 diabetes mellitus with other skin ulcer (principal); L97.312 Non-pressure chronic ulcer of right ankle with fat layer exposed; I87.2 Venous insufficiency (chronic) (peripheral) | CPT/HCPCS: 82947; G0277 ==

== ENCOUNTER 2025-02-23 03:04 | Day surgery (SDC) | payer OTHER | END 2025-02-23 23:00 | disposition home or self-care (01) | LOC: HBO 03:04 → WOUND 14:52 → HBO 14:55 | DX: E11.621 Type 2 diabetes mellitus with foot ulcer (principal); L97.412 Non-pressure chronic ulcer of right heel and midfoot with fat layer exposed; E11.622 Type 2 diabetes mellitus with other skin ulcer; L97.319 Non-pressure chronic ulcer of right ankle with unspecified severity; I87.2 Venous insufficiency (chronic) (peripheral) | CPT/HCPCS: 82947; G0277 ==

== ENCOUNTER 2025-02-25 03:11 | Day surgery (SDC) | payer OTHER | END 2025-02-25 23:00 | disposition home or self-care (01) | LOC: HBO 03:11 | DX: E11.622 Type 2 diabetes mellitus with other skin ulcer (principal); L97.312 Non-pressure chronic ulcer of right ankle with fat layer exposed; I87.2 Venous insufficiency (chronic) (peripheral) | CPT/HCPCS: 82947; G0277 ==

== ENCOUNTER 2025-02-28 00:41 | Day surgery (SDC) | payer OTHER | END 2025-02-28 23:00 | disposition home or self-care (01) | LOC: HBO 00:41 → WOUND 13:01 → HBO 13:03 | DX: E11.621 Type 2 diabetes mellitus with foot ulcer (principal); L97.412 Non-pressure chronic ulcer of right heel and midfoot with fat layer exposed; I87.2 Venous insufficiency (chronic) (peripheral) | CPT/HCPCS: 82947; G0277 ==

== ENCOUNTER 2025-03-01 01:04 | Day surgery (SDC) | payer OTHER | END 2025-03-01 23:00 | disposition home or self-care (01) | LOC: HBO 01:04 | DX: E11.621 Type 2 diabetes mellitus with foot ulcer (principal); L97.412 Non-pressure chronic ulcer of right heel and midfoot with fat layer exposed; I87.2 Venous insufficiency (chronic) (peripheral); E11.622 Type 2 diabetes mellitus with other skin ulcer; L97.312 Non-pressure chronic ulcer of right ankle with fat layer exposed | CPT/HCPCS: 82947; A9270; G0277 ==

== ENCOUNTER 2025-03-01 01:12 | Day surgery (SDC) | payer OTHER ==
[2025-03-01] MEDS ORDERED: Lidocaine HCl 4% Cream 5 GM ONE (10:43)
== END 2025-03-01 23:00 | disposition home or self-care (01) ==
LOC: WOUND 01:12
DX: E11.622 Type 2 diabetes mellitus with other skin ulcer (principal); L97.312 Non-pressure chronic ulcer of right ankle with fat layer exposed; E11.621 Type 2 diabetes mellitus with foot ulcer; L97.412 Non-pressure chronic ulcer of right heel and midfoot with fat layer exposed; I87.2 Venous insufficiency (chronic) (peripheral)
CPT/HCPCS: A9270

== ENCOUNTER 2025-03-02 03:45 | Day surgery (SDC) | payer OTHER | END 2025-03-02 23:00 | disposition home or self-care (01) | LOC: HBO 03:45 | DX: E11.621 Type 2 diabetes mellitus with foot ulcer (principal); L97.412 Non-pressure chronic ulcer of right heel and midfoot with fat layer exposed; I87.2 Venous insufficiency (chronic) (peripheral) | CPT/HCPCS: 82947; G0277 ==

== ENCOUNTER 2025-03-03 03:45 | Day surgery (SDC) | payer OTHER | END 2025-03-03 23:00 | disposition home or self-care (01) | LOC: HBO 03:45 | DX: E11.622 Type 2 diabetes mellitus with other skin ulcer (principal); L97.813 Non-pressure chronic ulcer of other part of right lower leg with necrosis of muscle; I87.2 Venous insufficiency (chronic) (peripheral) | CPT/HCPCS: 82947; G0277 ==

== ENCOUNTER 2025-03-07 00:59 | Day surgery (SDC) | payer OTHER | END 2025-03-07 23:00 | disposition home or self-care (01) | LOC: HBO 00:59 | DX: E11.621 Type 2 diabetes mellitus with foot ulcer (principal); L97.412 Non-pressure chronic ulcer of right heel and midfoot with fat layer exposed; I87.2 Venous insufficiency (chronic) (peripheral) | CPT/HCPCS: 82947; G0277 ==

== ENCOUNTER 2025-03-08 12:32 | Day surgery (SDC) | payer OTHER | END 2025-03-08 23:00 | disposition home or self-care (01) | LOC: WOUND 12:32 | DX: E11.622 Type 2 diabetes mellitus with other skin ulcer (principal); L97.312 Non-pressure chronic ulcer of right ankle with fat layer exposed; E11.621 Type 2 diabetes mellitus with foot ulcer; L97.412 Non-pressure chronic ulcer of right heel and midfoot with fat layer exposed; I87.2 Venous insufficiency (chronic) (peripheral); I12.9 Hypertensive chronic kidney disease with stage 1 through stage 4 chronic kidney disease, or unspecified chronic kidney disease; E11.22 Type 2 diabetes mellitus with diabetic chronic kidney disease; N18.9 Chronic kidney disease, unspecified; E78.5 Hyperlipidemia, unspecified; M79.7 Fibromyalgia ==

== ENCOUNTER 2025-03-08 12:32 | Day surgery (SDC) | payer OTHER | END 2025-03-08 23:00 | disposition home or self-care (01) | LOC: HBO 12:32 | DX: E11.621 Type 2 diabetes mellitus with foot ulcer (principal); L97.412 Non-pressure chronic ulcer of right heel and midfoot with fat layer exposed; I87.2 Venous insufficiency (chronic) (peripheral) | CPT/HCPCS: 82947; G0277 ==

== ENCOUNTER 2025-03-14 00:44 | Day surgery (SDC) | payer OTHER | END 2025-03-14 23:00 | disposition home or self-care (01) | LOC: HBO 00:44 | DX: E11.621 Type 2 diabetes mellitus with foot ulcer (principal); L97.412 Non-pressure chronic ulcer of right heel and midfoot with fat layer exposed; I87.2 Venous insufficiency (chronic) (peripheral) | CPT/HCPCS: 82947; G0277 ==

== ENCOUNTER 2025-03-14 00:50 | Day surgery (SDC) | payer OTHER ==
[2025-03-14] MEDS ORDERED: Lidocaine HCl 4% Cream 5 GM ONE (12:38)
== END 2025-03-14 23:00 | disposition home or self-care (01) ==
LOC: WOUND 00:50
DX: E11.621 Type 2 diabetes mellitus with foot ulcer (principal); L97.412 Non-pressure chronic ulcer of right heel and midfoot with fat layer exposed; E11.622 Type 2 diabetes mellitus with other skin ulcer; L97.312 Non-pressure chronic ulcer of right ankle with fat layer exposed; I87.2 Venous insufficiency (chronic) (peripheral); E11.40 Type 2 diabetes mellitus with diabetic neuropathy, unspecified; E11.22 Type 2 diabetes mellitus with diabetic chronic kidney disease; N18.9 Chronic kidney disease, unspecified; I12.9 Hypertensive chronic kidney disease with stage 1 through stage 4 chronic kidney disease, or unspecified chronic kidney disease; E78.5 Hyperlipidemia, unspecified
CPT/HCPCS: A9270

== ENCOUNTER → 2025-03-15 | Day surgery (SDC) | payer OTHER | END | disposition home or self-care (01) | LOC: HBO 04:41 | DX: E11.622 Type 2 diabetes mellitus with other skin ulcer (principal); L97.313 Non-pressure chronic ulcer of right ankle with necrosis of muscle; L97.412 Non-pressure chronic ulcer of right heel and midfoot with fat layer exposed; I87.2 Venous insufficiency (chronic) (peripheral) | CPT/HCPCS: 82947; G0277 ==

== ENCOUNTER 2025-03-22 00:58 | Day surgery (SDC) | payer OTHER | END 2025-03-22 23:00 | disposition home or self-care (01) | LOC: HBO 00:58 | DX: E11.621 Type 2 diabetes mellitus with foot ulcer (principal); L97.412 Non-pressure chronic ulcer of right heel and midfoot with fat layer exposed; L97.312 Non-pressure chronic ulcer of right ankle with fat layer exposed; I87.2 Venous insufficiency (chronic) (peripheral) | CPT/HCPCS: 82947; A9270; G0277 ==

== ENCOUNTER 2025-03-28 00:32 | Day surgery (SDC) | payer OTHER | END 2025-03-28 23:00 | disposition home or self-care (01) | LOC: HBO 00:32 | DX: E11.621 Type 2 diabetes mellitus with foot ulcer (principal); L97.413 Non-pressure chronic ulcer of right heel and midfoot with necrosis of muscle; I87.2 Venous insufficiency (chronic) (peripheral) | CPT/HCPCS: 82947; G0277 ==

== ENCOUNTER 2025-03-29 03:23 | Day surgery (SDC) | payer OTHER | END 2025-03-29 23:00 | disposition home or self-care (01) | LOC: HBO 03:23 | DX: E11.621 Type 2 diabetes mellitus with foot ulcer (principal); L97.412 Non-pressure chronic ulcer of right heel and midfoot with fat layer exposed; I87.2 Venous insufficiency (chronic) (peripheral); M05.9 Rheumatoid arthritis with rheumatoid factor, unspecified; E11.622 Type 2 diabetes mellitus with other skin ulcer; L97.312 Non-pressure chronic ulcer of right ankle with fat layer exposed; E11.42 Type 2 diabetes mellitus with diabetic polyneuropathy; E11.22 Type 2 diabetes mellitus with diabetic chronic kidney disease; E78.5 Hyperlipidemia, unspecified; I12.0 Hypertensive chronic kidney disease with stage 5 chronic kidney disease or end stage renal disease; N18.9 Chronic kidney disease, unspecified | CPT/HCPCS: 36415; 80053; 82947; 85651; 86140; G0277 ==

== ENCOUNTER 2025-03-29 08:25 | Day surgery (SDC) | payer OTHER | END 2025-03-29 23:00 | disposition home or self-care (01) | LOC: WOUND 08:25 | DX: E11.621 Type 2 diabetes mellitus with foot ulcer (principal); L97.412 Non-pressure chronic ulcer of right heel and midfoot with fat layer exposed; E11.622 Type 2 diabetes mellitus with other skin ulcer; L97.312 Non-pressure chronic ulcer of right ankle with fat layer exposed; E11.42 Type 2 diabetes mellitus with diabetic polyneuropathy; E11.22 Type 2 diabetes mellitus with diabetic chronic kidney disease; E78.5 Hyperlipidemia, unspecified; I87.2 Venous insufficiency (chronic) (peripheral); I10 Essential (primary) hypertension ==

== ENCOUNTER 2025-03-30 04:24 | Day surgery (SDC) | payer OTHER | END 2025-03-30 23:00 | disposition home or self-care (01) | LOC: HBO 04:24 | DX: E11.621 Type 2 diabetes mellitus with foot ulcer (principal); L97.412 Non-pressure chronic ulcer of right heel and midfoot with fat layer exposed; I87.2 Venous insufficiency (chronic) (peripheral) | CPT/HCPCS: 82947; G0277 ==

== ENCOUNTER 2025-03-31 03:18 | Day surgery (SDC) | payer OTHER | END 2025-03-31 22:55 | disposition home or self-care (01) | LOC: HBO 03:18 | DX: E11.621 Type 2 diabetes mellitus with foot ulcer (principal); L97.412 Non-pressure chronic ulcer of right heel and midfoot with fat layer exposed; I87.2 Venous insufficiency (chronic) (peripheral) | CPT/HCPCS: 82947; G0277 ==

== ENCOUNTER 2025-04-01 03:10 | Day surgery (SDC) | payer OTHER | END 2025-04-01 23:18 | disposition home or self-care (01) | LOC: HBO 03:10 | DX: E11.621 Type 2 diabetes mellitus with foot ulcer (principal); L97.412 Non-pressure chronic ulcer of right heel and midfoot with fat layer exposed; I87.2 Venous insufficiency (chronic) (peripheral) | CPT/HCPCS: 82947; G0277 ==

== ENCOUNTER → 2025-04-01 | Outpatient (CLI) | payer OTHER | END | disposition home or self-care (01) | LOC: LAB SHORT 18:26 → LAB 18:26 | DX: I87.2 Venous insufficiency (chronic) (peripheral) (principal); L97.311 Non-pressure chronic ulcer of right ankle limited to breakdown of skin | CPT/HCPCS: 87070 ==

== ENCOUNTER 2025-04-05 01:30 | Day surgery (SDC) | payer OTHER | END 2025-04-05 23:00 | disposition home or self-care (01) | LOC: HBO 01:30 | DX: E11.621 Type 2 diabetes mellitus with foot ulcer (principal); L97.412 Non-pressure chronic ulcer of right heel and midfoot with fat layer exposed; I87.2 Venous insufficiency (chronic) (peripheral) | CPT/HCPCS: 82947; G0277 ==

== ENCOUNTER 2025-04-06 02:23 | Day surgery (SDC) | payer OTHER | END 2025-04-06 23:00 | disposition home or self-care (01) | LOC: HBO 02:23 | DX: E11.621 Type 2 diabetes mellitus with foot ulcer (principal); L97.412 Non-pressure chronic ulcer of right heel and midfoot with fat layer exposed; I87.2 Venous insufficiency (chronic) (peripheral) | CPT/HCPCS: 82947; G0277 ==

== ENCOUNTER 2025-04-07 00:46 | Day surgery (SDC) | payer OTHER | END 2025-04-07 23:00 | disposition home or self-care (01) | LOC: HBO 00:46 | DX: E11.621 Type 2 diabetes mellitus with foot ulcer (principal); L97.412 Non-pressure chronic ulcer of right heel and midfoot with fat layer exposed; I87.2 Venous insufficiency (chronic) (peripheral) | CPT/HCPCS: 82947; G0277 ==

== ENCOUNTER 2025-04-18 02:37 | Day surgery (SDC) | payer OTHER | END 2025-04-18 23:00 | disposition home or self-care (01) | LOC: HBO 02:37 | DX: E11.621 Type 2 diabetes mellitus with foot ulcer (principal); L97.412 Non-pressure chronic ulcer of right heel and midfoot with fat layer exposed; I87.2 Venous insufficiency (chronic) (peripheral) | CPT/HCPCS: 82947; G0277 ==

== ENCOUNTER 2025-04-26 02:44 | Day surgery (SDC) | payer OTHER | END 2025-04-26 23:00 | disposition home or self-care (01) | LOC: WOUND 02:44 | DX: E11.621 Type 2 diabetes mellitus with foot ulcer (principal); L97.412 Non-pressure chronic ulcer of right heel and midfoot with fat layer exposed; E11.622 Type 2 diabetes mellitus with other skin ulcer; L97.312 Non-pressure chronic ulcer of right ankle with fat layer exposed; I87.2 Venous insufficiency (chronic) (peripheral); I12.9 Hypertensive chronic kidney disease with stage 1 through stage 4 chronic kidney disease, or unspecified chronic kidney disease; E11.22 Type 2 diabetes mellitus with diabetic chronic kidney disease; N18.9 Chronic kidney disease, unspecified; E78.5 Hyperlipidemia, unspecified; M79.7 Fibromyalgia | CPT/HCPCS: 87081; A6196 ==

== ENCOUNTER 2025-04-29 00:12 | Day surgery (SDC) | payer OTHER | END 2025-04-29 23:00 | disposition home or self-care (01) | LOC: HBO 00:12 | DX: E11.622 Type 2 diabetes mellitus with other skin ulcer (principal); L97.812 Non-pressure chronic ulcer of other part of right lower leg with fat layer exposed; I87.2 Venous insufficiency (chronic) (peripheral) | CPT/HCPCS: 82947; G0277 ==

== ENCOUNTER 2025-05-06 10:42 | Day surgery (SDC) | payer OTHER | END 2025-05-06 23:00 | disposition home or self-care (01) | LOC: WOUND 10:42 | DX: E11.621 Type 2 diabetes mellitus with foot ulcer (principal); L97.412 Non-pressure chronic ulcer of right heel and midfoot with fat layer exposed; E11.622 Type 2 diabetes mellitus with other skin ulcer; L97.312 Non-pressure chronic ulcer of right ankle with fat layer exposed; L97.812 Non-pressure chronic ulcer of other part of right lower leg with fat layer exposed; E11.40 Type 2 diabetes mellitus with diabetic neuropathy, unspecified; I87.2 Venous insufficiency (chronic) (peripheral); I12.9 Hypertensive chronic kidney disease with stage 1 through stage 4 chronic kidney disease, or unspecified chronic kidney disease; E11.22 Type 2 diabetes mellitus with diabetic chronic kidney disease; N18.9 Chronic kidney disease, unspecified; E78.5 Hyperlipidemia, unspecified; M79.7 Fibromyalgia | CPT/HCPCS: G0463 ==

== ENCOUNTER 2025-05-13 01:46 | Day surgery (SDC) | payer OTHER | END 2025-05-13 23:00 | disposition home or self-care (01) | LOC: HBO 01:46 | DX: E11.622 Type 2 diabetes mellitus with other skin ulcer (principal); L97.813 Non-pressure chronic ulcer of other part of right lower leg with necrosis of muscle; I87.2 Venous insufficiency (chronic) (peripheral); L97.312 Non-pressure chronic ulcer of right ankle with fat layer exposed; E11.621 Type 2 diabetes mellitus with foot ulcer; L97.412 Non-pressure chronic ulcer of right heel and midfoot with fat layer exposed; I12.9 Hypertensive chronic kidney disease with stage 1 through stage 4 chronic kidney disease, or unspecified chronic kidney disease; E11.22 Type 2 diabetes mellitus with diabetic chronic kidney disease; N18.9 Chronic kidney disease, unspecified; E78.5 Hyperlipidemia, unspecified; M79.7 Fibromyalgia | CPT/HCPCS: 82947; A9270; G0277; G0463 ==

== ENCOUNTER 2025-05-18 00:31 | Day surgery (SDC) | payer OTHER | END 2025-05-18 23:00 | disposition home or self-care (01) | LOC: HBO 00:31 | DX: E11.622 Type 2 diabetes mellitus with other skin ulcer (principal); L97.812 Non-pressure chronic ulcer of other part of right lower leg with fat layer exposed; I87.2 Venous insufficiency (chronic) (peripheral) | CPT/HCPCS: 82947; G0277 ==

== ENCOUNTER 2025-05-19 03:00 | Day surgery (SDC) | payer OTHER | END 2025-05-19 23:00 | disposition home or self-care (01) | LOC: HBO 03:00 | DX: E11.622 Type 2 diabetes mellitus with other skin ulcer (principal); L97.812 Non-pressure chronic ulcer of other part of right lower leg with fat layer exposed; I87.2 Venous insufficiency (chronic) (peripheral) | CPT/HCPCS: 82947; G0277 ==

== ENCOUNTER → 2025-05-19 | Outpatient (CLI) | payer OTHER | LOC: LAB 10:00 → LAB SHORT 10:00 | DX: R06.02 Shortness of breath (principal) | CPT/HCPCS: 87070; 87077; 87147; 87186 ==

== ENCOUNTER 2025-05-20 02:40 | Day surgery (SDC) | payer OTHER | END 2025-05-20 23:00 | disposition home or self-care (01) | LOC: HBO 02:40 | DX: E11.622 Type 2 diabetes mellitus with other skin ulcer (principal); L97.812 Non-pressure chronic ulcer of other part of right lower leg with fat layer exposed; I87.2 Venous insufficiency (chronic) (peripheral) | CPT/HCPCS: 82947; G0277 ==

== ENCOUNTER 2025-05-26 00:29 | Day surgery (SDC) | payer OTHER ==
[2025-05-26] MEDS ORDERED: Lidocaine HCl 4% Cream 5 GM ONE (15:21)
== END 2025-05-26 23:00 | disposition home or self-care (01) ==
LOC: WOUND 00:29
DX: E11.622 Type 2 diabetes mellitus with other skin ulcer (principal); L97.812 Non-pressure chronic ulcer of other part of right lower leg with fat layer exposed; I87.2 Venous insufficiency (chronic) (peripheral); I12.9 Hypertensive chronic kidney disease with stage 1 through stage 4 chronic kidney disease, or unspecified chronic kidney disease; E11.22 Type 2 diabetes mellitus with diabetic chronic kidney disease; N18.9 Chronic kidney disease, unspecified
CPT/HCPCS: A9270; G0463

== ENCOUNTER 2025-05-30 01:10 | Day surgery (SDC) | payer OTHER | END 2025-05-30 23:00 | disposition home or self-care (01) | LOC: HBO 01:10 | DX: E11.621 Type 2 diabetes mellitus with foot ulcer (principal); L97.412 Non-pressure chronic ulcer of right heel and midfoot with fat layer exposed; I87.2 Venous insufficiency (chronic) (peripheral) | CPT/HCPCS: 82947; G0277 ==

== ENCOUNTER 2025-05-31 01:35 | Day surgery (SDC) | payer OTHER | END 2025-05-31 22:33 | disposition home or self-care (01) | LOC: HBO 01:35 | DX: E11.621 Type 2 diabetes mellitus with foot ulcer (principal); L97.412 Non-pressure chronic ulcer of right heel and midfoot with fat layer exposed; I87.2 Venous insufficiency (chronic) (peripheral) | CPT/HCPCS: 82947; G0277 ==

== ENCOUNTER 2025-06-01 00:47 | Day surgery (SDC) | payer OTHER | END 2025-06-01 23:00 | disposition home or self-care (01) | LOC: HBO 00:47 | DX: E11.621 Type 2 diabetes mellitus with foot ulcer (principal); L97.412 Non-pressure chronic ulcer of right heel and midfoot with fat layer exposed; I87.2 Venous insufficiency (chronic) (peripheral) | CPT/HCPCS: 82947; G0277 ==

== ENCOUNTER 2025-06-14 00:26 | Day surgery (SDC) | payer OTHER | END 2025-06-14 22:42 | disposition home or self-care (01) | LOC: HBO 00:26 | DX: E11.621 Type 2 diabetes mellitus with foot ulcer (principal); L97.412 Non-pressure chronic ulcer of right heel and midfoot with fat layer exposed | CPT/HCPCS: 82947; G0277 ==

== ENCOUNTER 2025-06-15 09:33 | Day surgery (SDC) | payer OTHER | END 2025-06-15 23:00 | disposition home or self-care (01) | LOC: HBO 09:33 | DX: E11.621 Type 2 diabetes mellitus with foot ulcer (principal); L97.412 Non-pressure chronic ulcer of right heel and midfoot with fat layer exposed; I87.2 Venous insufficiency (chronic) (peripheral) | CPT/HCPCS: 82947; G0277 ==

== ENCOUNTER 2025-06-15 10:32 | Day surgery (SDC) | payer OTHER ==
[2025-06-15] MEDS ORDERED: Lidocaine HCl 4% Cream 5 GM ONE (15:37)
== END 2025-06-15 23:00 | disposition home or self-care (01) ==
LOC: WOUND 10:32
DX: E11.622 Type 2 diabetes mellitus with other skin ulcer (principal); L97.812 Non-pressure chronic ulcer of other part of right lower leg with fat layer exposed; L97.822 Non-pressure chronic ulcer of other part of left lower leg with fat layer exposed; E11.621 Type 2 diabetes mellitus with foot ulcer; L97.512 Non-pressure chronic ulcer of other part of right foot with fat layer exposed; I87.2 Venous insufficiency (chronic) (peripheral); I12.9 Hypertensive chronic kidney disease with stage 1 through stage 4 chronic kidney disease, or unspecified chronic kidney disease; E11.22 Type 2 diabetes mellitus with diabetic chronic kidney disease; N18.9 Chronic kidney disease, unspecified; E78.5 Hyperlipidemia, unspecified; M79.7 Fibromyalgia
CPT/HCPCS: A9270; G0463

== ENCOUNTER 2025-06-16 00:44 | Day surgery (SDC) | payer OTHER | END 2025-06-16 23:00 | disposition home or self-care (01) | LOC: HBO 00:44 | DX: E11.621 Type 2 diabetes mellitus with foot ulcer (principal); L97.412 Non-pressure chronic ulcer of right heel and midfoot with fat layer exposed; I87.2 Venous insufficiency (chronic) (peripheral); S81.802A Unspecified open wound, left lower leg, initial encounter; X58.XXXA Exposure to other specified factors, initial encounter | CPT/HCPCS: 82947; G0277 ==

== ENCOUNTER 2025-06-20 00:59 | Day surgery (SDC) | payer OTHER | END 2025-06-20 22:00 | disposition home or self-care (01) | LOC: HBO 00:59 | DX: E11.621 Type 2 diabetes mellitus with foot ulcer (principal); L97.412 Non-pressure chronic ulcer of right heel and midfoot with fat layer exposed; I87.2 Venous insufficiency (chronic) (peripheral) ==

== ENCOUNTER 2025-06-21 01:15 | Day surgery (SDC) | payer OTHER | END 2025-06-21 22:45 | disposition home or self-care (01) | LOC: HBO 01:15 | DX: E11.621 Type 2 diabetes mellitus with foot ulcer (principal); L97.412 Non-pressure chronic ulcer of right heel and midfoot with fat layer exposed; I87.2 Venous insufficiency (chronic) (peripheral) | CPT/HCPCS: 82947; G0277 ==

== ENCOUNTER 2025-06-23 00:20 | Day surgery (SDC) | payer OTHER ==
[2025-06-23] MEDS ORDERED: Lidocaine HCl 4% Cream 5 GM ONE (10:01)
== END 2025-06-23 23:00 | disposition home or self-care (01) ==
LOC: WOUND 00:20
DX: E11.622 Type 2 diabetes mellitus with other skin ulcer (principal); L97.812 Non-pressure chronic ulcer of other part of right lower leg with fat layer exposed; E11.621 Type 2 diabetes mellitus with foot ulcer; L97.412 Non-pressure chronic ulcer of right heel and midfoot with fat layer exposed; I87.2 Venous insufficiency (chronic) (peripheral); E11.42 Type 2 diabetes mellitus with diabetic polyneuropathy; M79.7 Fibromyalgia; E78.5 Hyperlipidemia, unspecified; I12.9 Hypertensive chronic kidney disease with stage 1 through stage 4 chronic kidney disease, or unspecified chronic kidney disease; E11.22 Type 2 diabetes mellitus with diabetic chronic kidney disease; N18.9 Chronic kidney disease, unspecified
CPT/HCPCS: A9270; G0463

== ENCOUNTER 2025-07-04 07:28 | Day surgery (SDC) | payer OTHER | END 2025-07-04 23:05 | disposition home or self-care (01) | LOC: HBO 07:28 | DX: E11.621 Type 2 diabetes mellitus with foot ulcer (principal); L97.412 Non-pressure chronic ulcer of right heel and midfoot with fat layer exposed | CPT/HCPCS: 82947; G0277 ==

== ENCOUNTER 2025-07-15 06:47 | Day surgery (SDC) | payer OTHER ==
[2025-07-15] MEDS ORDERED: Lidocaine HCl 4% Cream 5 GM ONE (12:45)
== END 2025-07-15 23:00 | disposition home or self-care (01) ==
LOC: WOUND 06:47
DX: E11.621 Type 2 diabetes mellitus with foot ulcer (principal); E11.622 Type 2 diabetes mellitus with other skin ulcer; L97.412 Non-pressure chronic ulcer of right heel and midfoot with fat layer exposed; L97.812 Non-pressure chronic ulcer of other part of right lower leg with fat layer exposed; I87.2 Venous insufficiency (chronic) (peripheral)
CPT/HCPCS: A9270; G0463